=== PATIENT | female | born 1965 | race Caucasian/White ===

== ENCOUNTER → 2019-03-30 15:38 | Outpatient (BNVA) | payer MEDICAID, SELFPAY | PROVIDERS: Family Provider Nurse Practitioner; PCP Nurse Practitioner; Visit Provider Nurse Practitioner Psychiatric/Mental Health | DX: F31.64 Bipolar disorder, current episode mixed, severe, with psychotic features (principal); F12.20 Cannabis dependence, uncomplicated; F17.290 Nicotine dependence, other tobacco product, uncomplicated | CPT/HCPCS: 99213 ==

== ENCOUNTER → 2019-06-22 08:16 | Outpatient (BNVA) | payer MEDICAID, SELFPAY | PROVIDERS: Family Provider Nurse Practitioner; PCP Nurse Practitioner; Visit Provider Nurse Practitioner Psychiatric/Mental Health | DX: F31.64 Bipolar disorder, current episode mixed, severe, with psychotic features (principal); F12.20 Cannabis dependence, uncomplicated; F17.290 Nicotine dependence, other tobacco product, uncomplicated; F31.81 Bipolar II disorder | CPT/HCPCS: 99213 ==

== ENCOUNTER → 2019-09-15 07:58 | Outpatient (BNVA) | payer MEDICAID, SELFPAY | PROVIDERS: Family Provider Nurse Practitioner; PCP Nurse Practitioner; Visit Provider Nurse Practitioner Psychiatric/Mental Health | DX: F31.64 Bipolar disorder, current episode mixed, severe, with psychotic features (principal); F12.20 Cannabis dependence, uncomplicated; F17.290 Nicotine dependence, other tobacco product, uncomplicated | CPT/HCPCS: 99213 ==

== ENCOUNTER → 2019-12-02 15:10 | Outpatient (BNVA) | payer MEDICAID, SELFPAY | PROVIDERS: Family Provider Nurse Practitioner; PCP Nurse Practitioner; Visit Provider Family Medicine Adult Medicine | DX: E78.5 Hyperlipidemia, unspecified (principal); N18.30 Chronic kidney disease, stage 3 unspecified; R11.0 Nausea; K21.9 Gastro-esophageal reflux disease without esophagitis; J44.9 Chronic obstructive pulmonary disease, unspecified; F31.64 Bipolar disorder, current episode mixed, severe, with psychotic features | CPT/HCPCS: 80053; 80061; 85025 ==

== ENCOUNTER → 2019-12-13 08:10 | Outpatient (BNVA) | payer MEDICAID, SELFPAY | PROVIDERS: Family Provider Nurse Practitioner; PCP Nurse Practitioner; Visit Provider Nurse Practitioner Psychiatric/Mental Health | DX: F31.64 Bipolar disorder, current episode mixed, severe, with psychotic features (principal); F12.20 Cannabis dependence, uncomplicated; F17.290 Nicotine dependence, other tobacco product, uncomplicated | CPT/HCPCS: 99213 ==

== ENCOUNTER 2020-02-07 06:30 | Observation (INO) | payer MEDICAID, SELFPAY ==
[2020-02-07] VITALS (21 sets, daily range): BP systolic 136–174; BP diastolic 70–124; PULSE 20–118; RESP 13–108; TEMP 36.7–36.9; O2SAT 93–100; BMI 21.9
--- NOTE | 2020-02-07 06:39 | XR_ITS ---
WS: [id number] PORTABLE CHEST HISTORY: dyspnea/cough COMPARISON: 03/14/2059 Hyperexpanded lungs from emphysema. No pneumonia. Normal vasculature. No pleural effusion or pneumoth orax. Cardiac size: Normal. Mediastinum/Aorta: Normal mediastinum. No osseous abnormality seen. XR/XR chest 1V portable [id number] IMPRESSION: Chronic emphysema. No pneumonia.
--- NOTE | 2020-02-07 06:40 | CT_ITS ---
WS: [id number] CT ABDOMEN AND PELVIS WITH CONTRAST HISTORY: Abdominal pain, vomiting blood. TECHNIQUE: Imaging performed of the abdomen and pelvis with IV contrast. Single phase imaging of the abdomen. Coronal and sagittal reformats are submitted. All CT scans at [facility] use at least one of these dose optimization techniques: automated exposure control; mA and/or kV adjustment per patient size (includes targeted exams where dose is matched to clinical indication); or iterativ e reconstruction. IV CONTRAST: Visipaque 320; 95 mL IV. Oral contrast: No DLP: 176.84 mGy.cm COMPARISON: 03/01/2019 Lower thorax: Severe emphysema at the lung bases. Heart is normal size. Diffuse circumferential moder ate esophageal wall thickening and a small hiatal hernia. Esophageal wall thickening has progressed s bora the prior study. Liver/biliary system: Normal size liver with a few scattered hypodensities which are too small to naida racterize. Gallbladder: Normal. No gallstones or wall thickening. No pericholecystic fluid. Pancreas: Moderate atrophy of the pancreas with no bile duct dilatation. Spleen: Normal. Adrenal glands: Normal. Right kidney: Normal. Left kidney: Normal. Aorta: Mild atherosclerosis with no aneurysm. Lymphadenopathy: None. Free fluid: None. GI tract: Marked diffuse constipation. Inspissated material throughout the entire colon. Colon is tor tuous and overlapping but no obstruction is identified. Moderate fluid distention of the stomach. Foc al outpouching of air extending into the antral mucosa of the stomach with adjacent mucosal thickenin g and edema. Abdominal wall: Unremarkable abdominal wall. No hernia. Pelvis: Normal. Bones: Unremarkable. CT/CT abdomen pelvis w con* [id number] IMPRESSION: 1. Highly suspicious for a nonperforated gastric ulcer involving the antrum. 2. Moderate distal esophagitis. 3. Marked emphysema. 4. Mild atherosclerosis aorta. 5. Marked diffuse constipation.
[2020-02-07] MEDS: ondansetron 2 mg/ML SDV 2 mL 4 MG IVP ×2 (06:51→13:33)
[2020-02-07] MEDS: sodium chloride 0.9% 1,000 ML 999 ML IV (06:53)
[2020-02-07 06:57] LABS: Basophils % 0.2 %; Eosinophils % 0.1 %; Hematocrit 41.3 % (37.0-47.0); Hemoglobin 14.6 g/dL (11.5-15.3); Lymphocytes % 8.5 %; Mean Corpuscular HGB Conc 35.4 g/dL (30.0-36.0); Mean Corpuscular Hemoglobin 30.5 pg (28.0-34.0); Mean Corpuscular Volume 86.4 fL (81-99); Mean Platelet Volume 9.5 fL (7.4-10.4); Monocytes # 0.7 10^3/uL (0.2-0.9); Neutrophils # 10.21 10^3/uL (1.8-7.7); Nucleated Red Blood Cells % 0 %; Platelet Count 343 10^3/cmm (130-400); Red Blood Count 4.78 10^6/uL (4.1-5.3); Red Cell Distribution Width 13.4 % (12.1-15.1)
--- NOTE | 2020-02-07 07:02 | PC.NURSE ---
Report received from ALEX Chowdhury at this time. This RN resumes patients care.
[2020-02-07 07:08] LABS: INR 0.93 (0.8-1.2)
[2020-02-07 07:09] LABS: Partial Thromboplastin Time 26.4 SECONDS (23.9-36.7)
[2020-02-07 07:14] LABS: Anion Gap 18.4 (5-19); Blood Urea Nitrogen 9 mg/dL (6-20); Carbon Dioxide 27 mmol/L (22-29); Chloride 96 mmol/L (98-107); Potassium 3.4 mmol/L (3.5-5.1); Sodium 138 mmol/L (136-145)
[2020-02-07 07:15] LABS: Alanine Aminotransferase 19 U/L (0-33); Albumin Level 4.7 g/dL (3.5-5.2); Alkaline Phosphatase 94 IU/L (35-105); Aspartate Amino Transferase 20 U/L (0-32); Creatine Phosphokinase 75 U/L (26-192); Glucose 246 mg/dL (65-115); Lipase 16 U/L (13-60); Magnesium 1.7 mg/dL (1.7-2.3); Osmolality Calculated 293 mOsm/kg (285-295); Total Bilirubin 0.4 mg/dL (0.15-1.2); Total Protein 7.7 g/dL (6.6-8.7)
[2020-02-07] MEDS: LORazepam 2 mg/mL INJ 1 mL 1 MG IVP (07:17)
[2020-02-07] MEDS: morphine 4 mg/mL SDV 1 mL 2 MG IVP ×3 (07:18→20:02)
[2020-02-07] MEDS: pantoprazole 40 mg SDV 80 MG IVP (07:19)
--- NOTE | 2020-02-07 07:28 | PC.NURSE ---
At patients bedside. This RN introduced self to patient. Patient resting in bed comfortably. No distress noted at this time. This RN obtained a type and screen and sent to lab. Administered medications to the patient at that was ordered at this time as well. This RN tested patients emesis that was in the emesis basin at bedside for occult blood. The test came back positive for blood. This RN notified the physician of the findings. X-ray at bedside after this RN left the room. Will continue to monitor patient.
[2020-02-07] MEDS: iodixanol 320 mg/mL 100mL Btl IV (07:36)
--- NOTE | 2020-02-07 07:50 | PC.NURSE ---
Rounded on patient. Patient resting in bed. No distress noted. Visitor at bedside. This RN educated patient that a stool sample is needed to be able to test for blood in her stool. Patient reports that she is unable to go at this time. Will update physician. Patient has no needs at this time. Will continue to monitor patient.
[2020-02-07 08:04] LABS: Urine Appearance Cloudy (CLEAR); Urine Color Yellow (Yellow); pH Urine 6.5 (5-7)
[2020-02-07 08:05] LABS: Add Urine Microscopic? YES; Bilirubin Urine 1+ (Negative); Blood Urine 2+ (Negative); Glucose Urine UA 2+ (Normal); Ketones Urine 2+ (Negative); Leukocyte Esterase Urine Trace (Negative); Nitrate Urine Negative (Negative); Protein Urine Trace (Negative); Specific Gravity, Urine 1.015 (1.005-1.030); Urobilinogen Urine 1 mg/dL (Negative)
[2020-02-07 08:07] LABS: Add Urine Culture? Yes; Bacteria Urine 4+ /hpf; Mucus Urine TRACE /hpf; RBC Urine 0-4 /hpf (0-2); Squamous Epithelial Cell Urine 0-4 /hpf (0-5); WBC Urine 25-40 /hpf (0-5)
--- NOTE | 2020-02-07 08:17 | W.ED.NAVMDI ---
HPI - Nausea/Vomiting/Diarrhea General: Chief complaint: Nausea/Vomiting/Diarrhea Stated complaint: Throwing up Blood Time Seen by Provider: 02/07/20 06:35 History of Present Illness: HPI Narrative: 54-year-old female presents complaining of vomiting that began yesterday with [id number] emesis slight reddish appearance to the emesis in the basin when I came to the exam room. She has had a little shortness of breath. She denies any history of GI bleeds. Previously she was on Zantac but she stopped that because of a recall. She did not replace it with anything according her primary care doctor's notes it was because of her lack of symptoms. She does chronically use marijuana and still is using it daily she states for pretty much all of her life. Additionally she has stage III chronic kidney disease. MD elicited complaint: nausea and vomiting Pertinent past history: other (Chronic cannabinoid syndrome) Onset (ago): day(s) Description of vomiting: bloody and coffee grounds Associated nausea: Yes Associated abdominal pain: Yes Location of pain: Epigastric Pain consistency: constant Severity: severe Quality: cramping Exacerbating factors: vomiting and movement Relieving factors: rest Associated symtoms: Reports anxiety, bloating, cough, fatigue, anorexia, malaise, myalgias, nausea and weakness; Denies altered mental status, change in vision, chest pain, diaphoresis, decreased urine output, dizziness, dysuria, epistaxis, fecal incontinence, fevers/chills, headache(s), numbness, palpitations, rash, short of breath, syncope, tenesmus or tinnitus Review of Systems Const: Reports: fatigue and malaise; Denies: diaphoresis Eyes: Denies: change in vision ENMT: Denies: tinnitus or epistaxis Card: Denies: chest pain, palpitations or syncope Resp: Denies: dyspnea, productive cough or non-productive cough GI: Reports: nausea and bloating; Denies: fecal incontinence : Denies: dysuria Skin/Breast: Denies: rash or pruritus Neuro: Denies: headache(s) or dizziness Psych: Reports: anxiety [facility] PFSH: Medical History (Updated 02/07/20 @ 08:26 by Brett Membreno DO) Bipolar affective disorder, mixed, severe, with psychotic behavior Cannabis dependence with current use Chronic nausea CKD (chronic kidney disease) stage 3, GFR 30-59 ml/min COPD (chronic obstructive pulmonary disease) Dyslipidemia GERD (gastroesophageal reflux disease) Nicotine dependence, other tobacco product, uncomplicated Social History Smoking and tobacco status: current every day smoker cigarettes Packs smoked per day: 0.5 Second hand smoke exposure: Yes Alcohol intake: never Physical Exam Const: COMMON NORMALS: no acute distress EXAM LIMITATIONS: no altered mental status GENERAL APPEARANCE: cooperative and comfortable ORIENTATION/CONSCIOUSNESS: Yes awake, Yes oriented to person, Yes oriented to place and Yes oriented to time HENMT: COMMON NORMALS: normocephalic, atraumatic, hearing grossly normal bilaterally, external ears normal, EAC's normal, TM's normal bilaterally, Normal nasal mucous membranes and turbinates present, moist oral mucous membranes and oropharynx normal HEAD & SCALP: normocephalic and atraumatic NOSE: Normal nasal mucous membranes and turbinates present EXTERNAL EAR: Yes external ears normal EXTERNAL AUDITORY CANAL: EAC's normal TYMPANIC MEMBRANE: TM's normal bilaterally Eye: COMMON NORMALS: Equal, round and reactive pupils present, EOMs intact bilaterally, conjunctivae normal and no scleral icterus CONJUNCTIVA: Yes conjunctivae normal PUPIL: Yes Equal, round and reactive pupils present Neck/C-Spine: COMMON NORMALS: full ROM, no lymphadenopathy, supple and no JVD Lymph: LYMPHATIC: no lymphadenopathy noted and no lymphedema noted Resp: COMMON NORMALS: normal respiratory effort, No retractions, No use of accessory muscles and clear to auscultation bilaterally AUSCULTATION: clear to auscultation bilaterally Cardio: COMMON NORMALS: no JVD, regular rate, regular rhythm and No murmurs present (Cardio) RATE: regular rate RHYTHM: regular rhythm GI: COMMON NORMALS: No hepatosplenomegaly present PALPATION: Yes Tenderness to palpation present (GI) (epigstrium), No Guarding due to palpation present (GI) and Yes No hepatosplenomegaly present Extremity: COMMON NORMALS: normal to inspection, capillary refill normal, no clubbing, cyanosis or edema, no calf tenderness and no pedal edema Neuro: SENSORIUM/ORIENTATION: Yes oriented to person, Yes oriented to place and Yes oriented to time Skin: COMMON NORMALS: no rashes or lesions noted GENERAL SKIN EXAM: no rashes or lesions noted Course Vital Signs: Vital signs: Vital Signs Temperature 98.1 F 02/07/20 06:40 Pulse Rate 106 H 02/07/20 09:24 Respiratory Rate 19 H 02/07/20 09:24 Blood Pressure 174/106 02/07/20 09:24 Pulse Oximetry 96 02/07/20 09:24 MDM - Nausea/Vomiting/Diarrhea MDM Narrative: Medical decision making narrative: CT shows nonperforated gastric ulcer consistent with her findings. Additionally she has a cystitis without started on Rocephin keep her n.p.o. referred to surgery discussed admission with hospitalist as well. Lab Data: Labs: Lab Results 02/07/20 02/07/20 02/07/20 Range/Units 06:47 06:47 06:47 WBC 12.0 H (4.0-10.0) 10^3/ uL RBC 4.78 (4.1-5.3) 10^6/u L Hgb 14.6 (11.5-15.3) g/dL Hct 41.3 (37.0-47.0) % MCV 86.4 (81-99) fL MCH 30.5 (28.0-34.0) pg MCHC 35.4 (30.0-36.0) g/dL RDW 13.4 (12.1-15.1) % Plt Count 343 (130-400) 10^3/c mm MPV 9.5 (7.4-10.4) fL Neut % (Auto) 85.0 % Lymph % (Auto) 8.5 % Flagler % (Auto) 6.0 % Eos % (Auto) 0.1 % Baso % (Auto) 0.2 % Neut # (Auto) 10.21 H (1.8-7.7) 10^3/u L Lymph # (Auto) 1.0 (0.8-4.8) 10^3/u L Flagler # (Auto) 0.7 (0.2-0.9) 10^3/u L Eos # (Auto) 0.0 (0.0-0.8) 10^3/u L Baso # (Auto) 0.0 (0.0-0.1) 10^3/u L Nucleated RBC % (a uto) 0 % Nucleated RBCs # 0.0 /100WBC PT 12.80 (12.1-14.9) SECO NDS INR 0.93 (0.8-1.2) APTT 26.4 (23.9-36.7) SECO NDS Sodium 138 (136-145) mmol/L Potassium 3.4 L (3.5-5.1) mmol/L Chloride 96 L (98-107) mmol/L Carbon Dioxide 27 (22-29) mmol/L Anion Gap 18.4 (5-19) BUN 9 (6-20) mg/dL Creatinine 0.9 (0.5-0.9) mg/dL GFR Calculation 65.0 L (90-130) mL/min Glucose 246 H (65-115) mg/dL Calculated Osmolal ity 293 (285-295) mOsm/k g Calcium 10.0 (8.5-10.5) mg/dL Magnesium 1.7 (1.7-2.3) mg/dL Total Bilirubin 0.4 (0.15-1.2) mg/dL AST 20 (0-32) U/L ALT 19 (0-33) U/L Alkaline Phosphata se 94 (35-105) IU/L Creatine Kinase 75 (26-192) U/L Total Protein 7.7 (6.6-8.7) g/dL Albumin 4.7 (3.5-5.2) g/dL Globulin 3.0 (1.3-4.6) g/dL Lipase 16 (13-60) U/L Urine Color (Yellow) Urine Appearance (CLEAR) Urine pH (5-7) Ur Specific Gravit y (1.005-1.030) Urine Protein (Negative) Urine Glucose (UA) (Normal) Urine Ketones (Negative) Urine Blood (Negative) Urine Nitrate (Negative) Urine Bilirubin (Negative) Urine Urobilinogen (Negative) mg/dL Ur Leukocyte Audelia ase (Negative) Urine RBC (0-2) /hpf Urine WBC (0-5) /hpf Ur Squamous Epith Cells (0-5) /hpf Amorphous Sediment Urine Bacteria (NONE) /hpf Urine Mucus /hpf Blood Type Rho(D) Type Antibody Screen 02/07/20 02/07/20 Range/Units 07:09 07:15 WBC (4.0-10.0) 10^3/ uL RBC (4.1-5.3) 10^6/u L Hgb (11.5-15.3) g/dL Hct (37.0-47.0) % MCV (81-99) fL MCH (28.0-34.0) pg MCHC (30.0-36.0) g/dL RDW (12.1-15.1) % Plt Count (130-400) 10^3/c mm MPV (7.4-10.4) fL Neut % (Auto) % Lymph % (Auto) % Flagler % (Auto) % Eos % (Auto) % Baso % (Auto) % Neut # (Auto) (1.8-7.7) 10^3/u L Lymph # (Auto) (0.8-4.8) 10^3/u L Flagler # (Auto) (0.2-0.9) 10^3/u L Eos # (Auto) (0.0-0.8) 10^3/u L Baso # (Auto) (0.0-0.1) 10^3/u L Nucleated RBC % (a uto) % Nucleated RBCs # /100WBC PT (12.1-14.9) SECO NDS INR (0.8-1.2) APTT (23.9-36.7) SECO NDS Sodium (136-145) mmol/L Potassium (3.5-5.1) mmol/L Chloride (98-107) mmol/L Carbon Dioxide (22-29) mmol/L Anion Gap (5-19) BUN (6-20) mg/dL Creatinine (0.5-0.9) mg/dL GFR Calculation (90-130) mL/min Glucose (65-115) mg/dL Calculated Osmolal ity (285-295) mOsm/k g Calcium (8.5-10.5) mg/dL Magnesium (1.7-2.3) mg/dL Total Bilirubin (0.15-1.2) mg/dL AST (0-32) U/L ALT (0-33) U/L Alkaline Phosphata se (35-105) IU/L Creatine Kinase (26-192) U/L Total Protein (6.6-8.7) g/dL Albumin (3.5-5.2) g/dL Globulin (1.3-4.6) g/dL Lipase (13-60) U/L Urine Color Yellow (Yellow) Urine Appearance Cloudy (CLEAR) Urine pH 6.5 (5-7) Ur Specific Gravit y 1.015 (1.005-1.030) Urine Protein Trace (Negative) Urine Glucose (UA) 2+ (Normal) Urine Ketones 2+ H (Negative) Urine Blood 2+ H (Negative) Urine Nitrate Negative (Negative) Urine Bilirubin 1+ H (Negative) Urine Urobilinogen 1 H (Negative) mg/dL Ur Leukocyte Audelia ase Trace H (Negative) Urine RBC 0-4 H (0-2) /hpf Urine WBC 25-40 H (0-5) /hpf Ur Squamous Epith Cells 0-4 H (0-5) /hpf Amorphous Sediment Not Reportable Urine Bacteria 4+ H (NONE) /hpf Urine Mucus Trace /hpf Blood Type O Negative Rho(D) Type Negative Antibody Screen Negative Discharge Plan Discharge Patient Disposition: Admitted As Inpatient Clinical Impression: Ulcer of antrum of stomach, COPD (chronic obstructive pulmonary disease), GERD (gastroesophageal reflux disease), CKD (chronic kidney disease) stage 3, GFR 30-59 ml/min, Acute upper gastrointestinal bleeding, Cannabinoid hyperemesis syndrome, Cystitis Condition: Stable Coding Level of Care Code ED Senior Licensing Manager for Chg Fwd Exam Comprehensive
[2020-02-07] MEDS: cefTRIAXone 1,000 MG in sodium chloride 0.9% (plus) 50 ML 100 MG IV (08:31)
--- NOTE | 2020-02-07 09:24 | PC.NURSE ---
Rounded on patient. Patient resting in bed. No distress noted. Patient has no needs at this time. Educated patient to use call light if she has any needs. Will continue to monitor patient.
[2020-02-07] MEDS: dextrose 5%-sod chloride 0.45% 1,000 ML 100 ML IV (10:13)
--- NOTE | 2020-02-07 13:45 | ECG_ITS ---
[facility] Test Date: 2020-02-07 Pat Name: Michelle Leone Department: Room: 275 Gender: Female Budget Technician: : 1965 Requested By: Kassidy Yuan Order Number: [id number] Carla MD: Erika Martínez M.D. Measurements Intervals [place] Rate: 105 P: 81 IL: 116 QRS: 81 QRSD: 94 T: 75 QT: 393 QTc: 520 Interpretive Statements SINUS TACHYCARDIA WITH SHORT IL INTERVAL POSSIBLE LEFT ATRIAL ENLARGEMENT [-0.1mV P WAVE IN V1/V2] Compared to ECG 03/14/2015 12:37:08 Short IL interval now present Electronically Signed On 02-08-2020 17:15:55 PRODUCTION CONTROL SCHEDULER by Erika Martínez M.D. [id number]
--- NOTE | 2020-02-07 13:45 | PM.HP ---
Providers/Chief Complaint Admitting Physician: Kassidy Yuan MD Primary Care Provider: ROMELIA Cha Chief Complaint: Throwing up Blood History of Present Illness Michelle Leone is a 54 year old female with PMH CKD stage 3a, DM, HTN, chronic pain , GERD presented to ER today with c/o hemetmesis, multiple episodes that started last night. She reports multiple episodes of vomting followed therefater by bright red blood without any other contents. She used to be on ranitidine chronically until it was discontinued 2 months ago. Also reports abdominal pain. 09/09 non radiating. Hb stable at 14. Hemodynamically stable. no further episodes since oresentation to ER. No korin, FOB+. CT abdomen with sugegstion of gastric ulcer. Review of Systems General: Reports: 10 or more systems reviewed and unremarkable except in HPI and below Const: Denies: fever(s), chills or body aches Eyes: Denies: change in vision, blurry vision or photophobia ENMT: Reports: hoarseness; Denies: throat pain, enlarged tonsils, odynophagia or nasal congestion Card: Denies: chest pain, palpitations, irregular heart rhythm, edema, swelling of feet/ankles, lightheadedness, pre-syncope, dyspnea on exertion or orthopnea Resp: Denies: dyspnea, productive cough, non-productive cough, wheezing, stridor, pain on inspiration, change in phlegm color, hemoptysis or chest congestion GI: Denies: abdominal pain, nausea, vomiting, hematemesis, coffee ground emesis, dysphagia, heartburn, diarrhea, constipation, GI cramping, change in stool character, hematochezia or melena : Denies: flank pain, difficulty voiding, dysuria, urinary frequency, urinary urgency, urinary hesitancy or hematuria Musc: Denies: neck pain, back pain, extremity pain, joint swelling, joint warmth or deformity Neuro: Denies: headache(s), numbness in extremities, weakness in extremities, sensory changes, difficulty walking, frequent falls, dizziness, vertigo, behavioral changes, Slurred speech present or seizure-like activity Psych: Denies: anxiety, depression, suicidal ideation or homicidal ideation Endo: Denies: polyuria, polydipsia, tired all the time, cold intolerance or hot flashes Toñito/Lymph: Denies: easy bruising or easy bleeding Medications/Allergies Home Medications Medication Instructions Recorded Confirmed Last Taken Type albuterol sulfate 90 mcg/actuation 2 puff INHALATION Q6H PRN #18 gm 12/02/19 02/07/20 Unknown Rx aerosol inhaler atorvastatin 40 mg tablet 40 mg PO DAILY 30 Days #30 tab 12/02/19 02/07/20 Unknown Rx budesonide-formoterol HFA 160 2 puff INHALATION BID 30 Days 12/02/19 02/07/20 Unknown Rx mcg-4.5 mcg/actuation aerosol #10.2 gm inhaler citalopram 20 mg tablet 20 mg PO QAM #30 tab 12/02/19 02/07/20 Unknown Rx montelukast 10 mg tablet 10 mg PO DAILY 30 Days #30 tab 01/31/20 02/07/20 Unknown Rx Seroquel 600 mg PO BEDTIME 02/07/20 02/07/20 Unknown History cranberry extract-vitamin C 1 cap PO PRN 02/07/20 02/07/20 Unknown History hydroxyzine HCl 50 mg PO BID PRN 02/07/20 02/07/20 Unknown History ondansetron HCl 4 mg PO Q8H PRN 02/07/20 02/07/20 Unknown History vitamin B complex 1 tab PO DAILY 02/07/20 02/07/20 Unknown History Allergies Allergy/AdvReac Type Severity Reaction Status Date / Time codeine Allergy Unknown Unknown Verified 02/07/20 09:45 PFSH Acute PFSH: Medical History Bipolar affective disorder, mixed, severe, with psychotic behavior Cannabis dependence with current use Chronic nausea CKD (chronic kidney disease) stage 3, GFR 30-59 ml/min COPD (chronic obstructive pulmonary disease) Dyslipidemia GERD (gastroesophageal reflux disease) Nicotine dependence, other tobacco product, uncomplicated Social History Smoking and tobacco status: current every day smoker cigarettes Packs smoked per day: 0.5 Second hand smoke exposure: Yes Alcohol intake: never Vitals/I&O/Wt Last Vital Signs Temp 98.3 F 02/07/20 12:00 Pulse 112 H 02/07/20 12:00 Resp 18 02/07/20 12:00 BP 154/89 02/07/20 12:00 Pulse Ox 95 02/07/20 12:00 02/06/20 02/07/20 02/07/20 22:59 06:59 14:59 Intake Total 1050 / 1050 Balance 1050 / 1050 Weight last 48 hrs Weight 52.617 kg Physical Exam Const: COMMON NORMALS: no acute distress, average body habitus, patient oriented x3, no limitations, healthy appearing, alert and well nourished HENMT: COMMON NORMALS: normocephalic and atraumatic HEAD & SCALP: normocephalic and atraumatic Eye: COMMON NORMALS: Equal, round and reactive pupils present, EOMs intact bilaterally, conjunctivae normal and no scleral icterus CONJUNCTIVA: Yes conjunctivae normal PUPIL: Yes Equal, round and reactive pupils present Neck/C-Spine: COMMON NORMALS: no JVD Resp: COMMON NORMALS: normal respiratory effort, No retractions, No use of accessory muscles, clear to auscultation bilaterally and percussion normal AUSCULTATION: clear to auscultation bilaterally PERCUSSION: percussion normal Cardio: COMMON NORMALS: no JVD, regular rate, regular rhythm, S1 normal heart sound present, S2 normal heart sound present, No gallops present (Cardio), No clicks present (Cardio), No murmurs present (Cardio), No rub (Cardio) and Peripheral pulses 2+ throughout RATE: regular rate RHYTHM: regular rhythm HEART SOUNDS: S1 normal heart sound present and S2 normal heart sound present PERIPHERAL PULSES: Peripheral pulses 2+ throughout GI: COMMON NORMALS: Normal to inspection, nondistended, normoactive bowel sounds present, Soft to palpation, non-tender, No hepatosplenomegaly present, no masses and no bruits PALPATION: Yes Soft to palpation and Yes No hepatosplenomegaly present Extremity: COMMON NORMALS: normal to inspection, full ROM, capillary refill normal, no joint enlargement, no clubbing, cyanosis or edema, no calf tenderness and no pedal edema Neuro: COMMON NORMALS: patient oriented x3, CN's II-XII intact bilaterally, moves all extremities, no focal motor deficits, no sensory deficits noted, deep tendon reflexes 2+ bilaterally and gait normal SENSORIUM/ORIENTATION: Yes alert Psych: COMMON NORMALS: mental status grossly normal, Normal thought process present, cooperative, normal affect, speech normal, activity/motor behavior normal, denies hallucinations, denies homicidal ideation and denies suicidal ideation SPEECH: Yes normal speech THOUGHT PROCESS: Normal thought process present Skin: COMMON NORMALS: no rashes or lesions noted, no wounds, turgor normal, no jaundice, no petechiae and no mottling GENERAL SKIN EXAM: no rashes or lesions noted and turgor normal Data : 02/07/20 17:25 02/07/20 06:47 A&P Assessment and plan (1) Ulcer of antrum of stomach: Status: Acute (2) Acute upper gastrointestinal bleeding: likely 2/2 antral ulcer as identified on CT no signs of perforation Protonix 80 mg iv given in ER, continue 40mg iv q12h no further episodes of hematemesis since ER presentation prn zofran/reglan Hb stable at 14, recheck this evening at 5 and then leobardo hemodynamicaly stable surgery consult with Dr. Pastrana- EGD likely as outptient if otherwise remains stable Status: Acute (3) COPD (chronic obstructive pulmonary disease): no acute exacerbation continue duonebs and pulmicort inhalation Status: Acute (4) CKD (chronic kidney disease) stage 3, GFR 30-59 ml/min: Status: Acute Attestations Medical Necessity Statement*: anticipate <2midnight for monitoring UGI bleeding, HB, hemodynamics Coding Level of Care Code Acute Purification Director for Chg Fwd Diagnoses Ulcer of antrum of stomach K25.9 Acute upper gastrointestinal bleeding K92.2 COPD (chronic obstructive pulmonary disease) J44.9 CKD (chronic kidney disease) stage 3, GFR 30-59 ml/min N18.3
--- NOTE | 2020-02-07 15:18 | PC.NURSE ---
patient complaining of nausea, zofran given at [address]. [address] Dr Yuan and requested something else for nausea per patient's request.
[2020-02-07] MEDS: dextrose 5%-ns + KCl 20 20 MEQ/1,000 ML BAG 75 MEQ IV (15:50)
--- NOTE | 2020-02-07 16:14 | PM.CONSULT ---
Providers/Reason For Consult Consulting Physican/Specialty*: Dr. Yuan Reason for Consult*: GI bleed Attending Physician: Kassidy Yuan MD Primary Care Provider: ROMELIA Cha History of Present Illness History of Present Illness Michelle Leone is a 54 year old female who presented to the ER last night with complaints of sudden onset of abdominal pain, nausea, vomiting and coffee-ground emesis. Patient denies any similar episodes in the past. Since her admission she is not had any further upper GI bleed. Patient denies any melena. She is never been diagnosed with peptic ulcer disease in the past and thinks she might have a had a EGD but she is not sure. Patient denies having a colonoscopy. She denies any history of NSAID abuse due to her known CKD Review of Systems General: Reports: 10 or more systems reviewed and unremarkable except in HPI and below Meds/Allergies Home Medications and Allergies Home Medications Medication Instructions Recorded Confirmed Last Taken Type albuterol sulfate 90 mcg/actuation 2 puff INHALATION Q6H PRN #18 gm 12/02/19 02/07/20 Unknown Rx aerosol inhaler atorvastatin 40 mg tablet 40 mg PO DAILY 30 Days #30 tab 12/02/19 02/07/20 Unknown Rx budesonide-formoterol HFA 160 2 puff INHALATION BID 30 Days 12/02/19 02/07/20 Unknown Rx mcg-4.5 mcg/actuation aerosol #10.2 gm inhaler citalopram 20 mg tablet 20 mg PO QAM #30 tab 12/02/19 02/07/20 Unknown Rx montelukast 10 mg tablet 10 mg PO DAILY 30 Days #30 tab 01/31/20 02/07/20 Unknown Rx Seroquel 600 mg PO BEDTIME 02/07/20 02/07/20 Unknown History cranberry extract-vitamin C 1 cap PO PRN 02/07/20 02/07/20 Unknown History hydroxyzine HCl 50 mg PO BID PRN 02/07/20 02/07/20 Unknown History ondansetron HCl 4 mg PO Q8H PRN 02/07/20 02/07/20 Unknown History vitamin B complex 1 tab PO DAILY 02/07/20 02/07/20 Unknown History Allergies Allergy/AdvReac Type Severity Reaction Status Date / Time codeine Allergy Unknown Unknown Verified 02/07/20 09:45 Current Medications Current Medications Generic Name Dose Route Start Last Admin Trade Name Freq PRN Reason Stop Dose Admin Potassium Chloride/Dextrose/Sod Cl 20 meq in 1,000 mls @ 75 mls/hr 02/07/20 14:00 02/07/20 15:50 Dextrose 5%-Ns + Kcl 20 IV 75 mls/hr .[id number] QUYEN Administration Morphine Sulfate 2 mg 02/07/20 09:48 02/07/20 13:45 Morphine 4 Mg/Ml Sdv 1 Ml IVP 2 mg Q4H PRN Administration SEVERE PAIN Ondansetron HCl 4 mg 02/07/20 09:48 02/07/20 13:33 Ondansetron 2 Mg/Ml Sdv 2 Ml IVP 4 mg Q6H PRN Administration NAUSEA AND VOMITING PFSH Acute PFSH: Medical History (Updated 02/07/20 @ 08:26 by Brett Membreno DO) Bipolar affective disorder, mixed, severe, with psychotic behavior Cannabis dependence with current use Chronic nausea CKD (chronic kidney disease) stage 3, GFR 30-59 ml/min COPD (chronic obstructive pulmonary disease) Dyslipidemia GERD (gastroesophageal reflux disease) Nicotine dependence, other tobacco product, uncomplicated Social History Smoking and tobacco status: current every day smoker cigarettes Packs smoked per day: 0.5 Second hand smoke exposure: Yes Alcohol intake: never Vitals/I&O/Wt Last Vital Signs Temp 98.4 F 02/07/20 15:33 Pulse 103 H 02/07/20 15:33 Resp 18 02/07/20 15:33 BP 146/84 02/07/20 15:33 Pulse Ox 94 02/07/20 15:33 02/07/20 02/07/20 02/07/20 06:59 14:59 22:59 Intake Total 1050 / 1050 Balance 1050 / 1050 Weight last 48 hrs Weight 116 lb Physical Exam Narrative: EXAM NARRATIVE: HEENT: Normocephalic Eye: Sclera /conjunctiva normal Respiratory and chest: Bilateral clear breath sounds on auscultation Cardiovascular: Normal S1 and S2 heart sounds Abdomen: Soft to palpation, mildly tender, no guarding or rigidity Neurological: Oriented to place person and time Skin: Intact, no lesions appreciated on gross exam Data Imaging^: CT Abd/Pel: I personally reviewed and interpreted this imaging study as follows: Radiologist's impression: 1. Highly suspicious for a nonperforated gastric ulcer involving the antrum. 2. Moderate distal esophagitis. 3. Marked emphysema. 4. Mild atherosclerosis aorta. 5. Marked diffuse constipation. A&P Assessment and plan (1) Ulcer of antrum of stomach: 53-year-old female who presents with upper GI bleed is currently hemodynamically stable. Her hemoglobin is 14.6. CT scan shows findings concerning for esophagitis and nonperforated antral ulcer. 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
[2020-02-07 17:39] LABS: Basophils % 0.2 %; Eosinophils % 0.1 %; Hematocrit 40.1 % (37.0-47.0); Hemoglobin 13.3 g/dL (11.5-15.3); Lymphocytes # 1.4 10^3/uL (0.8-4.8); Mean Corpuscular HGB Conc 33.2 g/dL (30.0-36.0); Mean Corpuscular Hemoglobin 30.1 pg (28.0-34.0); Mean Corpuscular Volume 90.7 fL (81-99); Mean Platelet Volume 9.4 fL (7.4-10.4); Monocytes # 1.3 10^3/uL (0.2-0.9); Monocytes % 11.6 %; Neutrophils # 8.06 10^3/uL (1.8-7.7); Neutrophils % 74.8 %; Nucleated Red Blood Cells % 0 %; Platelet Count 275 10^3/cmm (130-400); Red Blood Count 4.42 10^6/uL (4.1-5.3); Red Cell Distribution Width 13.7 % (12.1-15.1); White Blood Count 10.8 10^3/uL (4.0-10.0)
[2020-02-07] MEDS: pantoprazole 40 mg SDV IVP (18:16)
[2020-02-07] MEDS: ondansetron 4 MG Tablet PO (19:53)
[2020-02-07] MEDS: budesonide 0.5 mg/2 mL Neb INHALATION (20:28)
[2020-02-07] MEDS: quetiapine 300 mg Tablet 600 MG PO (20:31)
[2020-02-08] VITALS (14 sets, daily range): BP systolic 99–170; BP diastolic 63–96; PULSE 64–124; RESP 16–20; TEMP 36.5–36.9; O2SAT 92–99
[2020-02-08] MEDS: citalopram 20 mg Tablet PO (05:22)
[2020-02-08] MEDS: dextrose 5%-ns + KCl 20 20 MEQ/1,000 ML BAG 75 MEQ IV ×2 (05:23→18:21)
[2020-02-08 05:24] LABS: Basophils % 0.1 %; Eosinophils % 0.3 %; Hematocrit 37.9 % (37.0-47.0); Hemoglobin 13.1 g/dL (11.5-15.3); Lymphocytes # 1.6 10^3/uL (0.8-4.8); Lymphocytes % 21.6 %; Mean Corpuscular HGB Conc 34.6 g/dL (30.0-36.0); Mean Corpuscular Hemoglobin 30.3 pg (28.0-34.0); Mean Corpuscular Volume 87.7 fL (81-99); Mean Platelet Volume 9.7 fL (7.4-10.4); Monocytes # 0.7 10^3/uL (0.2-0.9); Monocytes % 9.9 %; Neutrophils # 4.93 10^3/uL (1.8-7.7); Neutrophils % 67.8 %; Nucleated Red Blood Cells % 0 %; Platelet Count 273 10^3/cmm (130-400); Red Blood Count 4.32 10^6/uL (4.1-5.3); Red Cell Distribution Width 13.7 % (12.1-15.1); White Blood Count 7.3 10^3/uL (4.0-10.0)
[2020-02-08 05:54] LABS: Alanine Aminotransferase 15 U/L (0-33); Albumin Level 3.9 g/dL (3.5-5.2); Alkaline Phosphatase 77 IU/L (35-105); Anion Gap 13.4 (5-19); Aspartate Amino Transferase 15 U/L (0-32); Blood Urea Nitrogen 5 mg/dL (6-20); Calcium 8.4 mg/dL (8.5-10.5); Carbon Dioxide 25 mmol/L (22-29); Chloride 104 mmol/L (98-107); Globulin 2.2 g/dL (1.3-4.6); Glomerular Filtration Rate 86.9 mL/min (90-130); Glucose 168 mg/dL (65-115); Osmolality Calculated 289 mOsm/kg (285-295); Potassium 3.4 mmol/L (3.5-5.1); Sodium 139 mmol/L (136-145); Total Bilirubin 0.3 mg/dL (0.15-1.2); Total Protein 6.1 g/dL (6.6-8.7)
[2020-02-08] MEDS: pantoprazole 40 mg SDV IVP ×2 (06:03→18:38)
[2020-02-08] MEDS: morphine 4 mg/mL SDV 1 mL 2 MG IVP (08:32)
[2020-02-08] MEDS: atorvastatin 40 mg Tablet PO (08:35)
[2020-02-08] MEDS: montelukast sodium 10 mg Tablet PO (08:35)
--- NOTE | 2020-02-08 08:59 | PC.CHAP ---
Pastoral Care Encounter/Spiritual Assessment Type of Contact [] Declined press reader visit [] Patient/Family/Request visit [] Outpatient visit [] Follow-up visit [] Physician referral [] Code/Alert [] Routine visit [] Staff referral [] Actively dying [] Patient sleeping [] Family support [] [x] Out of room [] Palliative care [] [] Receiving care in room [] Pre-surgical visit [] Trauma [] Long length of stay [] ICU visit [] Other: Relational/Emotional Strength [] Patient feels connected with others/family/visitors/staff [] Distress [] Loneliness/isolation [] Abandonment Spirituality of Patient [] Person of Lauren [] Attends Sikh of their Lauren [] Believes in Prayer [] Reads Bible or Mu-Ism materials [] There are Spiritual issues to be addressed Generating Station Mechanic Interventions [] Prayer [] Active listening [] Non-anxious presence [] Spiritual/emotional support [] Crisis/trauma care [] Spiritual counseling [] Bereavement support [] Provided bereavement packet [] Provided Bible/devotional materials [] Provided toy/stuffed animal, coloring book to patient or family member [] Provided Communion [] Anointing/[place] [] Salvation [] Completed spiritual assessment [] Other: Impact on Illness or Injury [] Angry [] Fearful [] Anxious [] Often cries [] Exhaustion [] Unable to work [] Unable to attend scientology [] Unable to walk/stand [] Unable to read [] Unable to drive [] Unable to eat/drink [] Unable to sleep [] Unable to be with family [] Patient intubated [] Other: Summary Time spent with patient
[2020-02-08] MEDS: budesonide 0.5 mg/2 mL Neb INHALATION ×2 (09:08→20:18)
[2020-02-08] MEDS: ipratropium-albuterol 3 mL Neb INHALATION (09:18)
--- NOTE | 2020-02-08 09:55 | PC.RESP ---
SMOKING CESSATION AND PULMONARY REHAB INFORMATION SENT TO PATIENT.
[2020-02-08 16:10] LABS: Hematocrit 38.7 % (37.0-47.0)
--- NOTE | 2020-02-08 16:38 | PM.PN ---
Subjective Subjective: Interval history: few episodes of hemetemsis continued overnight, still with abdominal pain and discomfort, Hb stable Medications: Reviewed: Yes Vitals/I&O/Wt Last Vital Signs Temp 98.4 F 02/08/20 15:33 Pulse 86 02/08/20 15:33 Resp 18 02/08/20 15:33 BP 124/78 02/08/20 15:33 Pulse Ox 96 02/08/20 15:33 02/08/20 02/08/20 02/08/20 06:59 14:59 22:59 Intake Total 1000 / 3050 Output Total 400 / 400 Balance 600 / 2650 Weight last 48 hrs Weight 52.617 kg Physical Exam Narrative: EXAM NARRATIVE: GEN: Awake, alert and oriented, no acute distress CVS: S1S2 N RS: CTA B/L Abd: Soft, nt/nd , TTP epigastrium PROPERTY SPECIALIST: no focal neuro deficits Data : 02/08/20 15:48 02/08/20 03:50 Micro: Microbiology 02/07/20 07:09 Urine Culture - Preliminary Urine,Clean Catch Gram Negative Rods A&P Assessment and plan (1) Ulcer of antrum of stomach: Status: Acute (2) Acute upper gastrointestinal bleeding: likely 2/2 antral ulcer as identified on CT no signs of perforation Protonix 80 mg iv given in ER, continue 40mg iv q12h Continued 2-3 episodes of hematemesis overnight, blood streaking with mucoid contents mostly, no further episodes this am prn zofran/reglan to continue, add sucralfate 1gm po BID Hb stable at 13 hemodynamicaly stable Apperciate surgical recomemndations- may need inpatient UGIE if with continued hematemesis Status: Acute (3) COPD (chronic obstructive pulmonary disease): no acute exacerbation continue duonebs and pulmicort inhalation Status: Acute (4) CKD (chronic kidney disease) stage 3, GFR 30-59 ml/min: Status: Acute (5) Cystitis: urine cx with GNR awaiting identification start ceftriaxone 1g iv q24h empirically no systemic signs of sepsis Status: Acute Attestations Medical Necessity Statement*: continued monitoring for hematemesis overnight, Hb check, UGIE assessment based on Hb, clinical progression Coding Level of Care Code Acute Administrative Associate for Chg Fwd Diagnoses Ulcer of antrum of stomach K25.9 Acute upper gastrointestinal bleeding K92.2 COPD (chronic obstructive pulmonary disease) J44.9 CKD (chronic kidney disease) stage 3, GFR 30-59 ml/min N18.3 Cystitis N30.90
--- NOTE | 2020-02-08 18:00 | P.PN_ITS ---
Subjective Subjective: Interval history: Patient has been stable overnight, had 2 episodes of emesis with small amount of fresh blood in the second episode. Continues to have nausea and epigastric pain Vitals/I&O/Wt Last Vital Signs Temp 98.4 F 02/08/20 15:33 Pulse 86 02/08/20 15:33 Resp 18 02/08/20 15:33 BP 124/78 02/08/20 15:33 Pulse Ox 96 02/08/20 15:33 02/08/20 02/08/20 02/08/20 06:59 14:59 22:59 Intake Total 1000 / 3050 Output Total 400 / 400 Balance 600 / 2650 Weight last 48 hrs Weight 116 lb Physical Exam Narrative: EXAM NARRATIVE: Abdomen: Soft, tender, voluntary guarding, no rigidity Data : 02/08/20 15:48 02/08/20 03:50 Micro: Microbiology 02/07/20 07:09 Urine Culture - Preliminary Urine,Clean Catch Gram Negative Rods A&P Assessment and plan (1) Ulcer of antrum of stomach: 53-year-old female with upper GI bleed noted on CT scan to have esophagitis and antral ulcer. Patient is currently hemodynamically stable and her hemoglobin is down to 13 today from 14.6 yesterday. She has had 1 small episode of hematemesis. 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
[2020-02-08] MEDS: sucralfate 1 gm/10 mL Oral Liq UDC PO ×2 (18:22→20:42)
[2020-02-08] MEDS: ondansetron 4 MG Tablet PO (19:02)
[2020-02-08] MEDS: metoclopramide 5 mg/mL SDV 2 mL IVP (19:47)
[2020-02-08] MEDS: quetiapine 300 mg Tablet 600 MG PO (20:41)
[2020-02-08 20:49] LABS: Gastricult Occult Blood Negative (Negative)
--- NOTE | 2020-02-08 20:52 | PC.NURSE ---
patient states no other needs at this time. patient resting in bed watching TV
[2020-02-09] VITALS (7 sets, daily range): BP systolic 129–144; BP diastolic 76–87; PULSE 84–116; RESP 17–18; TEMP 36.6–37.1; O2SAT 90–97
--- NOTE | 2020-02-09 00:03 | PC.NURSE ---
This nurse rounded on patient, patient sleeping with TV on. Patient pneumatic compression still running on patient. patient lights off for comfort.
--- NOTE | 2020-02-09 02:42 | PC.NURSE ---
Patient sleeping in bed with TV on, patient IV checked by this nurse and it patent.
[2020-02-09] MEDS: citalopram 20 mg Tablet PO (05:57)
[2020-02-09] MEDS: cefTRIAXone 1,000 MG in sodium chloride 0.9% (plus) 50 ML 100 MG IV (06:02)
[2020-02-09 06:55] LABS: Basophils % 0.6 %; Eosinophils # 0.1 10^3/uL (0.0-0.8); Eosinophils % 1.6 %; Hematocrit 37.7 % (37.0-47.0); Hemoglobin 12.9 g/dL (11.5-15.3); Lymphocytes # 2.2 10^3/uL (0.8-4.8); Lymphocytes % 34.9 %; Mean Corpuscular HGB Conc 34.2 g/dL (30.0-36.0); Mean Corpuscular Volume 87.7 fL (81-99); Mean Platelet Volume 9.3 fL (7.4-10.4); Monocytes # 0.8 10^3/uL (0.2-0.9); Monocytes % 12.3 %; Neutrophils # 3.16 10^3/uL (1.8-7.7); Neutrophils % 50.4 %; Nucleated Red Blood Cells % 0 %; Platelet Count 262 10^3/cmm (130-400); Red Cell Distribution Width 13.9 % (12.1-15.1); White Blood Count 6.3 10^3/uL (4.0-10.0)
[2020-02-09 07:10] LABS: Alanine Aminotransferase 17 U/L (0-33); Albumin Level 3.8 g/dL (3.5-5.2); Alkaline Phosphatase 73 IU/L (35-105); Anion Gap 12.6 (5-19); Aspartate Amino Transferase 17 U/L (0-32); Blood Urea Nitrogen 4 mg/dL (6-20); Calcium 8.6 mg/dL (8.5-10.5); Carbon Dioxide 24 mmol/L (22-29); Chloride 105 mmol/L (98-107); Globulin 2.4 g/dL (1.3-4.6); Glomerular Filtration Rate 74.5 mL/min (90-130); Glucose 128 mg/dL (65-115); Osmolality Calculated 285 mOsm/kg (285-295); Potassium 3.6 mmol/L (3.5-5.1); Sodium 138 mmol/L (136-145); Total Bilirubin 0.3 mg/dL (0.15-1.2); Total Protein 6.2 g/dL (6.6-8.7)
--- NOTE | 2020-02-09 07:32 | P.PN_ITS ---
Subjective Subjective: Interval history: Patient doing well, denies any significant pain, feels a lot better today, states that she is hungry Vitals/I&O/Wt Last Vital Signs Temp 98.1 F 02/09/20 07:21 Pulse 84 02/09/20 07:21 Resp 18 02/09/20 07:21 BP 134/78 02/09/20 07:21 Pulse Ox 97 02/09/20 07:21 02/08/20 02/09/20 02/09/20 22:59 06:59 14:59 Intake Total 1472.5 / 1522.5 50 / 1522.5 Balance 1472.5 / 1522.5 50 / 1522.5 Physical Exam Narrative: EXAM NARRATIVE: Abdomen: Soft, nondistended, nontender Data : 02/09/20 06:35 02/09/20 06:35 Micro: Microbiology 02/07/20 07:09 Urine Culture - Preliminary Urine,Clean Catch Gram Negative Rods A&P Assessment and plan (1) Ulcer of antrum of stomach: 53-year-old female with upper GI bleed noted on CT scan to have es ophagitis and antral ulcer. Patient is currently hemodynamically stable and her hemoglobin is down to 12.9 today from 14.6 on admission. She is tolerating clear liquid diet and has not had any nausea or emesis overnight Continue Protonix 40 mg IV twice daily Add sucralfate She could go home today on a full liquid diet, advance as tolerated and Protonix 40 mg twice daily and Carafate 1 g every 6. Follow-up in 2 weeks as an outpatient to schedule EGD/colonoscopy Status: Acute Attestations Medical Necessity Statement*: GI bleed Coding Level of Care Code Acute Business Services Vice President for Yanely Whalen Diagnoses Ulcer of antrum of stomach K25.9
[2020-02-09] MEDS: ipratropium-albuterol 3 mL Neb INHALATION (08:00)
[2020-02-09] MEDS: budesonide 0.5 mg/2 mL Neb INHALATION (08:00)
[2020-02-09] MEDS: dextrose 5%-ns + KCl 20 20 MEQ/1,000 ML BAG 75 MEQ IV (08:47)
[2020-02-09] MEDS: montelukast sodium 10 mg Tablet PO (08:48)
[2020-02-09] MEDS: sucralfate 1 gm/10 mL Oral Liq UDC PO ×2 (08:48→10:47)
[2020-02-09] MEDS: atorvastatin 40 mg Tablet PO (08:48)
[2020-02-09] MEDS: pantoprazole DR 40 mg Tablet PO (09:22)
--- NOTE | 2020-02-09 12:59 | PC.NURSE ---
Discharge instructions given to patient. Went over instruction with the patient all questions answered. IV catheter removed. Catheter tip intact. dressing applied, 2x2 and coban. Patient tolerated well. Patient in stable condition.
--- NOTE | 2020-02-09 17:11 | PM.DCS ---
Discharge Providers Date of Admission: 02/07/20 09:15 Date of Discharge: February 09, 2020 Attending Provider at Admission: Kassidy Yuan MD Attending Provider at Discharge: Kassidy Yuan MD Primary Care Provider: ROMELIA Cha Diagnoses at Discharge Discharge Diagnosis (1) Ulcer of antrum of stomach: Status: Acute Reason for Visit Reason for Visit: Throwing up Blood Hospital Course Hospital Course Michelle Leone is a 54 year old female with PMH CKD stage 3a, DM, HTN, chronic pain , GERD presented to ER today with c/o hemetmesis, multiple episodes that started last night. She reports multiple episodes of vomting followed therefater by bright red blood without any other contents. She used to be on ranitidine chronically until it was discontinued 2 months ago. Also reports abdominal pain. 7/[address] showed presence of antral ulcer. Her Hb remained stable during admission,no hypotension. hematemesis resolved. Abdominal pain imrpoved. She was treated with Protonix 40mg BID and Carafate with improvement. Discharged today in stable condition with advise to follow up with Dr. Pastrana in 2 weeks for endoscopy. Also c/o dysuria, UA conecrning for UTI, urine cx with GNR pending final identification. She was treated with CTX in the hospital, transitioned to po cipro on discharge Physical Exam Narrative: EXAM NARRATIVE: Awake, alert and oriented S1S2 N, no murmurmurs Chest clear to auscultation B/L abdomen soft, Nt/ND, BS+ No focal neuro deficits Discharge Data Data Completed and Pending: Completed Studies During Hospitalization Category Date Time Status CT abdomen pelvis w con* [id number] Stat Cat Scan 02/07/20 06:40 Completed XR chest 1V annette ble [id number] Stat Exams 02/07/20 06:39 Completed Labs from last 24 hours 02/09/20 02/09/20 02/07/20 06:35 06:35 19:05 WBC 6.3 RBC 4.30 Hgb 12.9 Hct 37.7 MCV 87.7 MCH 30.0 MCHC 34.2 RDW 13.9 Plt Count 262 MPV 9.3 Neut % (Auto) 50.4 Lymph % (Auto) 34.9 Mccormick % (Auto) 12.3 Eos % (Auto) 1.6 Baso % (Auto) 0.6 Neut # (Auto) 3.16 Lymph # (Auto) 2.2 Mccormick # (Auto) 0.8 Eos # (Auto) 0.1 Baso # (Auto) 0.0 Nucleated RBC % (a uto) 0 Nucleated RBCs # 0.0 Sodium 138 Potassium 3.6 Chloride 105 Carbon Dioxide 24 Anion Gap 12.6 BUN 4 L Creatinine 0.8 GFR Calculation 74.5 L Glucose 128 H Calculated Osmolal ity 285 Calcium 8.6 Total Bilirubin 0.3 AST 17 ALT 17 Alkaline Phosphata se 73 Total Protein 6.2 L Albumin 3.8 Globulin 2.4 Gastric Occult Blo od Negative Vitals: Last Vital Signs Temp 98.8 F 02/09/20 13:12 Pulse 116 H 02/09/20 13:12 Resp 18 02/09/20 13:12 BP 144/87 02/09/20 13:12 Pulse Ox 90 02/09/20 13:12 Discharge Plan Discharge Patient Disposition: Home Condition: Stable Prescriptions: New pantoprazole 40 mg Tablet,Delayed Release (Dr/Ec) 40 mg PO BID 30 Days Qty: 60 RF: 0 sucralfate 1 gram tablet 1 g PO BID 28 Days Qty: 56 RF: 0 Cipro 500 mg tablet 500 mg PO BID 2 Days Qty: 4 RF: 0 Continued atorvastatin 40 mg tablet 40 mg PO DAILY 30 Days Qty: 30 RF: 3 Symbicort 160-4.5 mcg/actuation HFA aerosol inhaler 2 puff INHALATION BID 30 Days Qty: 10.2 RF: 3 citalopram [Celexa] 20 mg tablet 20 mg PO QAM Qty: 30 RF: 4 albuterol sulfate [ProAir HFA] 90 mcg/actuation HFA aerosol inhaler 2 puff INHALATION Q6H PRN (Reason: shortness of breath or wheezing) Qty: 18 RF: 3 montelukast [Singulair] 10 mg tablet 10 mg PO DAILY 30 Days Qty: 30 RF: 5 hydroxyzine HCl 50 mg tablet 50 mg PO BID PRN (Reason: Anxiety) RF: 0 vitamin B complex Tablet 1 tab PO DAILY RF: 0 cranberry extract-vitamin C 250-60 mg Capsule 1 cap PO PRN RF: 0 Seroquel 300 mg tablet 600 mg PO BEDTIME RF: 0 ondansetron HCl 4 mg tablet 4 mg PO Q8H PRN (Reason: Nausea And Vomiting) RF: 0 Discharge Orders: Discharge Order (Routine); Ordered 02/09/20 Ordered By: Kassidy Yuan Referrals: Delvin Casey MD [Physician] - (please call for appointment) Hay Pastrana MD [Physician] - 02/22/20 2:15 pm Discharge Diet: Full LIquid Discharge Activity: Resume usual activity Patient Instructions: Ciprofloxacin (By mouth), Sucralfate (By mouth), Pantoprazole (By mouth), Peptic Ulcer (DC) Discharge Attestations Time Spent in Discharge Care*: greater than 30 min Quality Metrics Clinical Quality Measures During this hospital stay, did patient experience: None Coding Level of Care Code Acute 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
== END 2020-02-09 13:13 | disposition home or self-care (01) ==
LOC: ER 08:26 → MEDSURG 09:34
PROVIDERS: Admitting Provider Student in an Organized Health Care Education/Training Program; Emergency Provider Family Medicine; PCP Nurse Practitioner; Visit Provider Student in an Organized Health Care Education/Training Program
DX: K25.9 Gastric ulcer, unspecified as acute or chronic, without hemorrhage or perforation (principal); J44.9 Chronic obstructive pulmonary disease, unspecified; E11.22 Type 2 diabetes mellitus with diabetic chronic kidney disease; I12.9 Hypertensive chronic kidney disease with stage 1 through stage 4 chronic kidney disease, or unspecified chronic kidney disease; N18.30 Chronic kidney disease, stage 3 unspecified; E78.5 Hyperlipidemia, unspecified; F17.210 Nicotine dependence, cigarettes, uncomplicated
CPT/HCPCS: 12345; 36415; 71045; 74177; 80053; 81001; 82271; 82550; 83690; 83735; 85014; 85018; 85025; 85610; 85730; 86850; 86900; 87077; 87086; 87186; 93005; 94640; 96361; 96365; 96375; 99283; 99285; C9113; G0378; J0696; J2060; J2270; J2405; J2765; J7030; J7626; J7799; Q0162; Q9967

== ENCOUNTER → 2020-03-15 08:00 | Outpatient (BNVA) | payer MEDICAID, SELFPAY | PROVIDERS: PCP Family Medicine Adult Medicine; Visit Provider Surgery | DX: Z11.59 Encounter for screening for other viral diseases (principal); K25.9 Gastric ulcer, unspecified as acute or chronic, without hemorrhage or perforation | CPT/HCPCS: 87635 ==

== ENCOUNTER 2020-03-21 06:54 | Day surgery (SDC) | payer MEDICAID, SELFPAY ==
[2020-03-17 10:50] VITALS: BMI 21.9
[2020-03-21] VITALS (8 sets, daily range): BP systolic 158–176; BP diastolic 98–132; PULSE 104–117; RESP 16–22; TEMP 36.2–36.4; O2SAT 95–100
[2020-03-21] MEDS: ondansetron 2 mg/ML SDV 2 mL 4 MG IVP (07:15)
[2020-03-21] MEDS: sodium chloride 0.9% 1,000 ML 30 ML IV (07:30)
--- NOTE | 2020-03-21 07:37 | ANES.PREANE2 ---
Pre-Anesthetic Assessment Pre-Anesthetic Assessment: Height/Weight: Height 1.55 m Weight 52.617 kg Temp Pulse Resp BP Pulse Ox 97.1 F L 117 H 22 H 167/104 98 03/21/20 07:15 03/21/20 07:15 03/21/20 07:15 03/21/20 07:15 03/21/20 07:15 Preop Diagnosis: panendoscopy Proposed Procedure: Operation Date: 03/21/20 08:00 Proposed Procedures p EGD/Colon 07806 K25.9(Not Applicable) - Hay Pastrana MD s Colonoscopy 31141 Z12.11(Not Applicable) - Hay Pastrana MD Familial anesthetic complications: none Was Beta Alo taken within 24 hours: N/A Last intake: Intake Last Liquid Date 03/20/20 Last Liquid Time 23:30 Last Solid Date 03/19/20 Last Solid Time 21:00 Social: Social History: Tobacco and No alcohol Comment: patient smokes pot, denies use of any other street drugs Exam: Pre-Anes Outpt Exam: alert, oriented x 3, clear to auscultation bilaterally and regular rate & rhythm Airway: Cervical ROM: WNL MP: 3 Dentition: Other (no teeth) Pulmonary: Pulmonary: COPD (inhalers) : : Chronic renal Insufficiency GI: GI: GERD Comments: hx gastric bleed with ulcer - patient started vomiting up blood tinged contents last night, continuing this morning with abdominal pain. Zofran and fentanyl given Anesthetic Plan: ASA status: 3 Anesthesia: General Other: patient continuing to vomit blood-tinged fluid this morning, would require RSI Risk of > 500 ml blood loss (7ml/kg in children): No Meds/Allergies Current Medications: Current Medications Generic Name Dose Route Start Last Admin Trade Name Freq PRN Reason Stop Dose Admin Sodium Chloride 1,000 mls @ 30 ml s/hr 03/21/20 07:15 03/21/20 07:30 Sodium Chloride 0.9% IV 03/22/20 07:14 30 mls/hr .Q24H QUYEN Administration Ondansetron HCl 4 mg 03/21/20 07:11 03/21/20 07:15 Ondansetron 2 Mg /Ml Sdv 2 Ml IVP 4 mg Q15M PRN Administration Nausea/Vomiting P ACU PHASE II PFSH Anesthesia PFSH: Medical History Bipolar affective disorder, mixed, severe, with psychotic behavior CKD (chronic kidney disease) stage 3, GFR 30-59 ml/min COPD (chronic obstructive pulmonary disease) Dyslipidemia GERD (gastroesophageal reflux disease) Social History Smoking and tobacco status: current every day smoker cigarettes Packs smoked per day: 0.5 Second hand smoke exposure: Yes Alcohol intake: never Data Anesthesia Cardiac Studies: No Data to Display
[2020-03-21] MEDS: fentaNYL 50 mcg/mL INJ 2mL 25 MCG IVP (07:48)
[2020-03-21 07:56] LABS: Basophils % 0.3 %; Eosinophils % 0.1 %; Hemoglobin 13.6 g/dL (11.5-15.3); Lymphocytes # 0.7 10^3/uL (0.8-4.8); Lymphocytes % 5.7 %; Mean Corpuscular Hemoglobin 30.4 pg (28.0-34.0); Mean Corpuscular Volume 89.3 fL (81-99); Mean Platelet Volume 9.2 fL (7.4-10.4); Monocytes # 0.6 10^3/uL (0.2-0.9); Monocytes % 4.9 %; Neutrophils # 10.87 10^3/uL (1.8-7.7); Neutrophils % 88.7 %; Nucleated Red Blood Cells % 0 %; Platelet Count 348 10^3/cmm (130-400); Red Blood Count 4.48 10^6/uL (4.1-5.3); Red Cell Distribution Width 13.6 % (12.1-15.1); White Blood Count 12.3 10^3/uL (4.0-10.0)
[2020-03-21 08:12] LABS: Amphetamines Screen Urine Negative (Negative); Barbiturates Screen Urine Negative (Negative); Benzodiazepines Screen Urine Negative (Negative); Cocaine Screen Urine Negative (Negative); Opiate Screen Urine Negative (Negative); PCP Screen Urine Negative (Negative); THC Screen Urine Positive (Negative)
--- NOTE | 2020-03-21 09:15 | P.HP_ITS ---
Same Day Surgery H&P Indication for Procedure/HPI DATE OF PROCEDURE: March 21, 2020 CHIEF COMPLAINT/INDICATIONFOR SURGICAL PROCEDURE: gastric ulcer, screening PREOP DIAGNOSIS: panendoscopy PLANNED PROCEDRUE: Operation Date: 03/21/20 08:00 Proposed Procedures p EGD/Colon 24849 K25.9(Not Applicable) - Hay Pastrana MD s Colonoscopy 87959 Z12.11(Not Applicable) - Hay Pastrana MD Medications/Allergies* Home Medications Medication Instructions Recorded Confirmed Type cranberry extract-vitamin C 1 cap PO DAILY 02/07/20 03/21/20 History vitamin B complex 1 tab PO DAILY 02/07/20 03/17/20 History Allergies/Adverse Reactions Allergy/AdvReac Type Severity Reaction Status Date / Time codeine Allergy Unknown Unknown Verified 02/18/20 09:14 Current Medications: Generic Name Dose Route Start Last Admin Trade Name Freq PRN Reason Stop Dose Admin Sodium Chloride 1,000 mls @ 30 mls/hr 03/21/20 07:15 03/21/20 07:30 Sodium Chloride 0.9% IV 03/22/20 07:14 30 mls/hr .Q24H QUYEN Administration Ondansetron HCl 4 mg 03/21/20 07:11 03/21/20 07:15 Ondansetron 2 Mg/Ml Sdv 2 Ml IVP 4 mg Q15M PRN Administration Nausea/Vomiting PACU PHASE II Pertinent History/Comorbid Conditions* Medical History (Updated 02/18/20 @ 10:20 by Hay Pastrana MD) Bipolar affective disorder, mixed, severe, with psychotic behavior CKD (chronic kidney disease) stage 3, GFR 30-59 ml/min COPD (chronic obstructive pulmonary disease) Dyslipidemia GERD (gastroesophageal reflux disease) Social History Smoking and tobacco status: current every day smoker cigarettes Packs smoked per day: 0.5 Second hand smoke exposure: Yes Alcohol intake: never Pertinent Exam Findings alert, oriented x 3 and regular rate & rhythm Recommendations Surgery/Procedure today Coding Level of Care Code Acute Field Clinical Engineer for Carinag Marlee
--- NOTE | 2020-03-21 14:10 | ANE.PACU2 ---
Inpatient post-anesthesia follow up: Airway intact: Yes Vital signs: Temperature 97.5 F Pulse Rate 114 Respiratory Rate 18 Blood Pressure 164/132 Pulse Oximetry 98 Oxygen Delivery Me thod Room Air Oxygen Flow Rate 6 Fraction of Inspir ed Oxygen Hydration adequate: Yes Nausea and vomiting: No Pain level: 1 Mental status: Baseline
== END 2020-03-21 10:28 | disposition home or self-care (01) ==
PROVIDERS: Anesthesiology; PCP Family Medicine Adult Medicine; Visit Provider Surgery
PROC: 0DJ08ZZ Inspection of Upper Intestinal Tract, Via Natural or Artificial Opening Endoscopic (ICD-10-PCS; CPT 43235; principal; 2020-03-21 08:00)
PROC: 0DJD8ZZ Inspection of Lower Intestinal Tract, Via Natural or Artificial Opening Endoscopic (ICD-10-PCS; CPT 45330; 2020-03-21 08:00)
DX: Z12.11 Encounter for screening for malignant neoplasm of colon (principal); K25.9 Gastric ulcer, unspecified as acute or chronic, without hemorrhage or perforation; K22.2 Esophageal obstruction; K44.9 Diaphragmatic hernia without obstruction or gangrene; J44.9 Chronic obstructive pulmonary disease, unspecified; K21.9 Gastro-esophageal reflux disease without esophagitis; N18.30 Chronic kidney disease, stage 3 unspecified; E78.5 Hyperlipidemia, unspecified; F17.210 Nicotine dependence, cigarettes, uncomplicated
CPT/HCPCS: 12345; 43239; 45330; 80306; 85025; 88305; 96374; 96375; J0330; J2405; J2704; J3010; J7030

== ENCOUNTER → 2020-03-27 09:34 | Outpatient (BNVA) | payer MEDICAID, SELFPAY | PROVIDERS: PCP Family Medicine Adult Medicine; Visit Provider Nurse Practitioner Psychiatric/Mental Health | DX: F31.64 Bipolar disorder, current episode mixed, severe, with psychotic features (principal); F43.12 Post-traumatic stress disorder, chronic; F12.20 Cannabis dependence, uncomplicated; F17.290 Nicotine dependence, other tobacco product, uncomplicated; Z79.899 Other long term (current) drug therapy | CPT/HCPCS: 99214 ==

== ENCOUNTER → 2020-05-01 08:31 | Outpatient (BNVA) | payer MEDICAID, SELFPAY | PROVIDERS: PCP Family Medicine Adult Medicine; Visit Provider Social Worker Clinical | DX: F43.12 Post-traumatic stress disorder, chronic (principal); F31.5 Bipolar disorder, current episode depressed, severe, with psychotic features | CPT/HCPCS: 90791 ==

== ENCOUNTER → 2020-06-01 08:13 | Outpatient (BNVA) | payer MEDICAID, SELFPAY | PROVIDERS: PCP Family Medicine Adult Medicine; Visit Provider Social Worker Clinical | DX: F43.12 Post-traumatic stress disorder, chronic (principal); F31.64 Bipolar disorder, current episode mixed, severe, with psychotic features | CPT/HCPCS: 90834 ==

== ENCOUNTER → 2020-06-19 08:33 | Outpatient (BNVA) | payer MEDICAID, SELFPAY | PROVIDERS: PCP Family Medicine Adult Medicine; Visit Provider Nurse Practitioner Psychiatric/Mental Health | DX: F31.64 Bipolar disorder, current episode mixed, severe, with psychotic features (principal); F43.12 Post-traumatic stress disorder, chronic; F12.20 Cannabis dependence, uncomplicated; F17.290 Nicotine dependence, other tobacco product, uncomplicated; Z79.899 Other long term (current) drug therapy | CPT/HCPCS: 99214 ==

== ENCOUNTER → 2020-06-22 11:49 | Outpatient (BNVA) | payer MEDICAID, SELFPAY | PROVIDERS: PCP Family Medicine Adult Medicine; Visit Provider Social Worker Clinical | DX: F43.12 Post-traumatic stress disorder, chronic (principal); F31.64 Bipolar disorder, current episode mixed, severe, with psychotic features; F12.20 Cannabis dependence, uncomplicated | CPT/HCPCS: 90834 ==

== ENCOUNTER → 2020-07-04 11:19 | Outpatient (BNVA) | payer MEDICAID, SELFPAY | PROVIDERS: PCP Family Medicine Adult Medicine; Visit Provider Family Medicine Adult Medicine | DX: R63.4 Abnormal weight loss (principal); R73.09 Other abnormal glucose; R11.0 Nausea; J44.9 Chronic obstructive pulmonary disease, unspecified; E78.5 Hyperlipidemia, unspecified; K92.2 Gastrointestinal hemorrhage, unspecified; R10.84 Generalized abdominal pain | CPT/HCPCS: 80053; 83036; 85025 ==

== ENCOUNTER 2020-07-16 12:39 | Emergency (ER) | payer MEDICAID, SELFPAY ==
[2020-07-16 13:09] VITALS: BP 177/102; PULSE 108; RESP 20; TEMP 37.1; O2SAT 97; BMI 18.5
[2020-07-16 13:31] VITALS: BP 162/93; PULSE 103; RESP 22; O2SAT 100
--- NOTE | 2020-07-16 13:46 | XRR_ITS ---
PROCEDURE INFORMATION: Exam: XR Chest Exam date and time: 07/16/2020 1:50 PM Age: 55 years old Clinical indication: Other: N/v weight loss TECHNIQUE: Imaging protocol: XR of the chest. Views: 1 view. COMPARISON: CR XR chest 1V portable [id number] 02/07/2020 7:09 AM FINDINGS: Lungs: The lungs are somewhat hyperinflated with increased interstitial markings, likely representing COPD. No evidence of focal consolidation to suggest pneumonia. Pleural spaces: Unremarkable. No pleural effusion. No pneumothorax. Heart/Mediastinum: Unremarkable. No cardiomegaly. Bones/joints: Unremarkable. XR/XR chest 1V portable [id number] IMPRESSION: No evidence of focal consolidation. COPD changes.
--- NOTE | 2020-07-16 13:48 | W.ED.NAVMDI ---
HPI - Nausea/Vomiting/Diarrhea General: Chief complaint: Nausea/Vomiting/Diarrhea Stated complaint: N/V,NO INTAKE, KID DISEASE,WEAK,LOSING WT Time Seen by Provider: 07/16/20 13:29 Source: patient and family Mode of arrival: ambulatory Limitations: no limitations History of Present Illness: HPI Narrative: This is a 55-year-old female with a history of COPD who presents to the emergency department with nausea and vomiting of 10 days duration. She states that she has been unable to keep anything down. She vomited several times a day although she said in the last few days it has just been dry heaving as her stomach is empty. She also complains of constipation and cannot remember the last time she had a bowel movement. She does say it has been more than a week since she had a bowel movement. She endorses abdominal pain radiating to her back. She denies any fever or sick contacts. She denies any urinary symptoms MD elicited complaint: nausea, vomiting and abdominal pain Onset (ago): day(s) (10) Description of vomiting: food contents Associated nausea: Yes Associated abdominal pain: Yes Location of pain: Diffuse Pain consistency: constant Quality: cramping Exacerbating factors: eating Relieving factors: none Associated symtoms: Reports nausea; Denies altered mental status, anxiety, bloating, change in vision, chest pain, cough, diaphoresis, decreased urine output, dizziness, dysuria, epistaxis, fatigue, fecal incontinence, fevers/chills, headache(s), anorexia, malaise, myalgias, numbness, palpitations, rash, short of breath, syncope, tenesmus, tinnitus or weakness Review of Systems General: Reports: 10 or more systems reviewed and unremarkable except in HPI and below Const: Denies: fatigue, malaise or diaphoresis Eyes: Denies: change in vision ENMT: Denies: tinnitus or epistaxis Card: Denies: chest pain, palpitations or syncope GI: Reports: nausea; Denies: bloating or fecal incontinence : Denies: dysuria Neuro: Denies: headache(s) or dizziness Psych: Denies: anxiety PFS ED PFSH: Medical History (Reviewed 07/16/20 @ 13:54 by Adrienne Diez MD, [facility] [place]) Acute upper gastrointestinal bleeding Bipolar affective disorder, mixed, severe, with psychotic behavior Cannabis dependence with current use Chronic post-traumatic stress disorder CKD (chronic kidney disease) stage 3, GFR 30-59 ml/min COPD (chronic obstructive pulmonary disease) Dyslipidemia Elevated hemoglobin A1c GERD (gastroesophageal reflux disease) GI (gastrointestinal bleed) Nicotine dependence, other tobacco product, uncomplicated Weight loss, abnormal Surgical History (Reviewed 07/16/20 @ 13:54 by Adrienne Diez MD, [facility] [place]) H/O esophagogastroduodenoscopy (03/21/20) Social History (Reviewed 07/16/20 @ 13:54 by Adrienne Diez MD, [facility] [place]) Smoking and tobacco status: current every day smoker cigarettes Packs smoked per day: 0.5 Second hand smoke exposure: Yes Alcohol intake: never Physical Exam Const: COMMON NORMALS: no acute distress, average body habitus, patient oriented x3, no limitations, healthy appearing, alert and well nourished EXAM LIMITATIONS: no altered mental status HENMT: COMMON NORMALS: normocephalic, atraumatic and moist oral mucous membranes HEAD & SCALP: normocephalic and atraumatic Neck/C-Spine: COMMON NORMALS: no meningeal signs and no JVD Resp: COMMON NORMALS: normal respiratory effort, No retractions, No use of accessory muscles, clear to auscultation bilaterally and percussion normal AUSCULTATION: clear to auscultation bilaterally PERCUSSION: percussion normal Cardio: COMMON NORMALS: no JVD, regular rate, regular rhythm, S1 normal heart sound present, S2 normal heart sound present, No gallops present (Cardio), No clicks present (Cardio), No murmurs present (Cardio), No rub (Cardio) and Peripheral pulses 2+ throughout RATE: regular rate RHYTHM: regular rhythm HEART SOUNDS: S1 normal heart sound present and S2 normal heart sound present PERIPHERAL PULSES: Peripheral pulses 2+ throughout GI: COMMON NORMALS: Normal to inspection, nondistended, normoactive bowel sounds present, Soft to palpation, No hepatosplenomegaly present, no masses and no bruits PALPATION: Yes Soft to palpation, Yes Tenderness to palpation present (GI) (diffuse), Yes Guarding due to palpation present (GI) and Yes No hepatosplenomegaly present Extremity: COMMON NORMALS: normal to inspection, full ROM, capillary refill normal, no calf tenderness and no pedal edema Neuro: COMMON NORMALS: patient oriented x3 SENSORIUM/ORIENTATION: Yes alert MENINGEAL SIGNS: Yes no meningeal signs Skin: COMMON NORMALS: no rashes or lesions noted, no wounds, turgor normal, no jaundice, no petechiae and no mottling GENERAL SKIN EXAM: no rashes or lesions noted and turgor normal Course Reevaluation(s): Reevaluation #1: Discussed her lab and imaging findings with her. She has a urinary tract infection as well as constipation. She was given a dose of intravenous ceftriaxone in the emergency department and will be discharged home with a prescription for lactulose. She voiced understanding and is in agreement with the plan. Time: 15:34 Vital Signs: Vital signs: Vital Signs Temperature 98.7 F 07/16/20 13:09 Pulse Rate 115 H 07/16/20 16:15 Respiratory Rate 22 H 07/16/20 13:31 Blood Pressure 162/93 07/16/20 16:15 Pulse Oximetry 98 07/16/20 16:15 MDM - Nausea/Vomiting/Diarrhea MDM Narrative: Medical decision making narrative: 55-year-old female patient who presents to the emergency department with nausea and vomiting, constipation, and abdominal pain. Symptoms are most likely a combination of several factors including a UTI, constipation of unknown etiology leading to the nausea and vomiting. She was given intravenous ceftriaxone in the emergency department and discharged home on oral antibiotic. She is discharged home also with oral laxative. She is to follow-up with her primary care provider. Medical Records: Attestation: I reviewed the patient's medical records. Lab Data: Attestation: I reviewed the patient's lab results. Labs: Lab Results 07/16/20 07/16/20 07/16/20 Range/Units 13:48 13:48 13:48 WBC 8.0 (4.0-10.0) 10^3/ uL RBC 4.53 (4.1-5.3) 10^6/u L Hgb 13.6 (11.5-15.3) g/dL Hct 40.2 (37.0-47.0) % MCV 88.7 (81-99) fL MCH 30.0 (28.0-34.0) pg MCHC 33.8 (30.0-36.0) g/dL RDW 13.2 (12.1-15.1) % Plt Count 305 (130-400) 10^3/c mm MPV 9.4 (7.4-10.4) fL Neut % (Auto) 69.1 % Lymph % (Auto) 16.9 % Pershing % (Auto) 12.2 % Eos % (Auto) 0.9 % Baso % (Auto) 0.7 % Neut # (Auto) 5.53 (1.8-7.7) 10^3/u L Lymph # (Auto) 1.4 (0.8-4.8) 10^3/u L Pershing # (Auto) 1.0 H (0.2-0.9) 10^3/u L Eos # (Auto) 0.1 (0.0-0.8) 10^3/u L Baso # (Auto) 0.1 (0.0-0.1) 10^3/u L Nucleated RBC % (a uto) 0 % Nucleated RBCs # 0.0 /100WBC Sodium 133 L (136-145) mmol/L Potassium 3.7 (3.5-5.1) mmol/L Chloride 94 L (98-107) mmol/L Carbon Dioxide 25 (22-29) mmol/L Anion Gap 17.7 (5-19) BUN 12 (6-20) mg/dL Creatinine 1.0 H (0.5-0.9) mg/dL GFR Calculation 57.4 L (90-130) mL/min Glucose 154 H (65-115) mg/dL Calculated Osmolal ity 279 L (285-295) mOsm/k g Lactate 1.2 (0.5-2.2) mmol/L Calcium 9.2 (8.5-10.5) mg/dL Total Bilirubin 0.6 (0.15-1.2) mg/dL AST 28 (0-32) U/L ALT 24 (0-33) U/L Alkaline Phosphata se 83 (35-105) IU/L C-Reactive Protein 0.3 (0.0-4.9) mg/L Total Protein 7.7 (6.6-8.7) g/dL Albumin 4.5 (3.5-5.2) g/dL Globulin 3.2 (1.3-4.6) g/dL Lipase 25 (13-60) U/L Urine Color (Yellow) Urine Appearance (CLEAR) Urine pH (5-7) Ur Specific Gravit y (1.005-1.030) Urine Protein (Negative) Urine Glucose (UA) (Normal) Urine Ketones (Negative) Urine Blood (Negative) Urine Nitrate (Negative) Urine Bilirubin (Negative) Urine Urobilinogen (Negative) mg/dL Ur Leukocyte Audelia ase (Negative) Urine RBC (0-2) /hpf Urine WBC (0-5) /hpf Ur Squamous Epith Cells (0-5) /hpf Ur Transition Epit h Cell /hpf Amorphous Sediment Urine Bacteria (NONE) /hpf Urine Opiates Scre en (Negative) ng/mL Ur Barbiturates Sc reen (Negative) ng/mL Ur Phencyclidine S crn (Negative) ng/mL Ur Amphetamines Sc reen (Negative) ng/mL U Benzodiazepines Scrn (Negative) ng/mL Urine Cocaine Scre en (Negative) ng/mL U Marijuana (THC) Screen (Negative) ng/mL 07/16/20 07/16/20 Range/Units 14:03 14:03 WBC (4.0-10.0) 10^3/ uL RBC (4.1-5.3) 10^6/u L Hgb (11.5-15.3) g/dL Hct (37.0-47.0) % MCV (81-99) fL MCH (28.0-34.0) pg MCHC (30.0-36.0) g/dL RDW (12.1-15.1) % Plt Count (130-400) 10^3/c mm MPV (7.4-10.4) fL Neut % (Auto) % Lymph % (Auto) % Pershing % (Auto) % Eos % (Auto) % Baso % (Auto) % Neut # (Auto) (1.8-7.7) 10^3/u L Lymph # (Auto) (0.8-4.8) 10^3/u L Pershing # (Auto) (0.2-0.9) 10^3/u L Eos # (Auto) (0.0-0.8) 10^3/u L Baso # (Auto) (0.0-0.1) 10^3/u L Nucleated RBC % (a uto) % Nucleated RBCs # /100WBC Sodium (136-145) mmol/L Potassium (3.5-5.1) mmol/L Chloride (98-107) mmol/L Carbon Dioxide (22-29) mmol/L Anion Gap (5-19) BUN (6-20) mg/dL Creatinine (0.5-0.9) mg/dL GFR Calculation (90-130) mL/min Glucose (65-115) mg/dL Calculated Osmolal ity (285-295) mOsm/k g Lactate (0.5-2.2) mmol/L Calcium (8.5-10.5) mg/dL Total Bilirubin (0.15-1.2) mg/dL AST (0-32) U/L ALT (0-33) U/L Alkaline Phosphata se (35-105) IU/L C-Reactive Protein (0.0-4.9) mg/L Total Protein (6.6-8.7) g/dL Albumin (3.5-5.2) g/dL Globulin (1.3-4.6) g/dL Lipase (13-60) U/L Urine Color Yellow (Yellow) Urine Appearance Hazy A (CLEAR) Urine pH 6 (5-7) Ur Specific Gravit y 1.020 (1.005-1.030) Urine Protein Trace (Negative) Urine Glucose (UA) Norm (Normal) Urine Ketones 1+ H (Negative) Urine Blood 2+ H (Negative) Urine Nitrate Positive H (Negative) Urine Bilirubin 1+ H (Negative) Urine Urobilinogen 1 H (Negative) mg/dL Ur Leukocyte Audelia ase 1+ H (Negative) Urine RBC 15-25 H (0-2) /hpf Urine WBC 40-55 H (0-5) /hpf Ur Squamous Epith Cells 0-4 H (0-5) /hpf Ur Transition Epit h Cell 0-4 /hpf Amorphous Sediment Not Reportable Urine Bacteria 4+ H (NONE) /hpf Urine Opiates Scre en Negative (Negative) ng/mL Ur Barbiturates Sc reen Negative (Negative) ng/mL Ur Phencyclidine S crn Negative (Negative) ng/mL Ur Amphetamines Sc reen Negative (Negative) ng/mL U Benzodiazepines Scrn Negative (Negative) ng/mL Urine Cocaine Scre en Negative (Negative) ng/mL U Marijuana (THC) Screen Positive H (Negative) ng/mL Imaging Data^: Other Xray: Attestation: I personally reviewed and interpreted this imaging study as follows: Radiologist's impression: Leighton AlmodovarMiddlebourneANALY [id number] ReportSigned Patient: Michelle Leone #: [id number]: 1965Acct#:[id number]/Sex: 55 / FADM Date: 07/16/20Loc: ERRoom/Bed:Attending Dr: Ordering Provider/Ordering MD: Adrienne Diez MD, [facility] [place] Date of Service: 07/16/20 Procedure(s): XR abdomen 1V* [id number] Accession Number(s): [id number] Report Number: [id number] PROCEDURE INFORMATION: Exam: XR Abdomen Exam date and time: 07/16/2020 1:51 PM Age: 55 years old Clinical indication: Abdominal pain; Additional info: Constipation TECHNIQUE: Imaging protocol: XR of the abdomen. Views: Frontal supine view of the abdomen. 1 View. COMPARISON: CT abdomen pelvis w con* [id number] 02/07/2020 7:24 AM FINDINGS: Gastrointestinal tract: There is a moderate amount of stool throughout the colon and rectum, suggestive of constipation. Nonobstructive bowel gas pattern. Bones/joints: Unremarkable. XR/XR abdomen 1V* [id number] IMPRESSION: Imaging findings suggestive of constipation. Dictated By:Dolores Beltre By:Dolores Beltre Date/Time:07/16/20 1448DD/ 1446 CXR: Attestation: I personally reviewed and interpreted this imaging study as follows: Radiologist's impression: Leighton AlmodovarMiddlebourne [place] [address]OMji ReportSigned Patient: Michelle Leone #: [id number]: 1965Acct#:[id number]/Sex: 55 / FADM Date: 07/16/20Loc: ERRoom/Bed:Attending Dr: Ordering Provider/Ordering MD: Adrienne Diez MD, [facility] [place] Date of Service: 07/16/20 Procedure(s): XR chest 1V portable [id number] Accession Number(s): [id number] Report Number: [id number] PROCEDURE INFORMATION: Exam: XR Chest Exam date and time: 07/16/2020 1:50 PM Age: 55 years old Clinical indication: Other: N/v weight loss TECHNIQUE: Imaging protocol: XR of the chest. Views: 1 view. COMPARISON: CR XR chest 1V portable [id number] 02/07/2020 7:09 AM FINDINGS: Lungs: The lungs are somewhat hyperinflated with increased interstitial markings, likely representing COPD. No evidence of focal consolidation to suggest pneumonia. Pleural spaces: Unremarkable. No pleural effusion. No pneumothorax. Heart/Mediastinum: Unremarkable. No cardiomegaly. Bones/joints: Unremarkable. XR/XR chest 1V portable [id number] IMPRESSION: No evidence of focal consolidation. COPD changes. Dictated By:Dolores Beltre By:Dolores Beltre Date/Time:07/16/201447DD/ 46 Discharge Plan Discharge Patient Disposition: Home Clinical Impression: UTI (urinary tract infection) Qualifiers: Urinary tract infection type: acute cystitis Hematuria presence: without hematuria Qualified Code(s): N30.00 - Acute cystitis without hematuria Constipation Qualifiers: Constipation type: unspecified constipation type Qualified Code(s): K59.00 - Constipation, unspecified Condition: Stable Prescriptions: New Augmentin 500-125 mg tablet 1 tab PO BID Qty: 10 RF: 0 lactulose 10 gram/15 mL (15 mL) solution 10 g PO TID Qty: 600 RF: 0 Continued citalopram [Celexa] 20 mg tablet 20 mg PO QAM Qty: 30 RF: 6 hydroxyzine HCl 50 mg tablet 50 mg PO BID PRN (Reason: Anxiety) Qty: 60 RF: 4 Seroquel 300 mg tablet 600 mg PO BEDTIME Qty: 60 RF: 6 albuterol sulfate [ProAir HFA] 90 mcg/actuation HFA aerosol inhaler 2 puff INHALATION Q6H PRN (Reason: shortness of breath or wheezing) 30 Days Qty: 18 RF: 3 atorvastatin 40 mg tablet 40 mg PO DAILY 30 Days Qty: 30 RF: 5 Symbicort 160-4.5 mcg/actuation HFA aerosol inhaler 2 puff INHALATION BID 30 Days Qty: 10.2 RF: 3 ondansetron HCl 4 mg tablet 4 mg PO Q8H PRN (Reason: Nausea And Vomiting) Qty: 30 RF: 1 Protonix 40 mg tablet,delayed release (DR/EC) 40 mg PO BID 42 Days Qty: 60 RF: 5 montelukast [Singulair] 10 mg tablet 10 mg PO DAILY 30 Days Qty: 30 RF: 5 nicotine 14 mg/24 hr patch 24 hour 1 patch transdermal DAILY Qty: 14 RF: 0 vitamin B complex Tablet 1 tab PO DAILY RF: 0 cranberry extract-vitamin C 250-60 mg Capsule 1 cap PO DAILY RF: 0 Discharge Orders: Discharge ED (Routine); Ordered 07/16/20 Ordered By: Adrienne Diez Referrals: Delvin Casey MD [Primary Care Provider] - 1-3 days Discharge Diet: As Directed Discharge Activity: Increase activity as tolerated Patient Instructions: Constipation (ED), Urinary Tract Infection in Women (ED), High Fiber Diet (ED) Activity Restrictions/Additional Instructions: Return for any new or worsening symptoms. Follow-up with your primary care provider within 3 days. Consume a high-fiber diet. Drink plenty of fluids to keep well-hydrated. Take the medications as prescribed. Coding Level of Care Code ED Veneer Trimmer for Chg Fwd Exam Comprehensive
--- NOTE | 2020-07-16 13:50 | XRR_ITS ---
PROCEDURE INFORMATION: Exam: XR Abdomen Exam date and time: 07/16/2020 1:51 PM Age: 55 years old Clinical indication: Abdominal pain; Additional info: Constipation TECHNIQUE: Imaging protocol: XR of the abdomen. Views: Frontal supine view of the abdomen. 1 View. COMPARISON: CT abdomen pelvis w con* [id number] 02/07/2020 7:24 AM FINDINGS: Gastrointestinal tract: There is a moderate amount of stool throughout the colon and rectum, suggestive of constipation. Nonobstructive bowel gas pattern. Bones/joints: Unremarkable. XR/XR abdomen 1V* [id number] IMPRESSION: Imaging findings suggestive of constipation.
[2020-07-16] MEDS: ondansetron 2 mg/ML SDV 2 mL 4 MG IVP (13:53)
[2020-07-16] MEDS: sodium chloride 0.9% 1,000 ML 999 ML IV (13:53)
[2020-07-16 13:59] LABS: Basophils # 0.1 10^3/uL (0.0-0.1); Basophils % 0.7 %; Eosinophils # 0.1 10^3/uL (0.0-0.8); Eosinophils % 0.9 %; Hematocrit 40.2 % (37.0-47.0); Hemoglobin 13.6 g/dL (11.5-15.3); Lymphocytes # 1.4 10^3/uL (0.8-4.8); Lymphocytes % 16.9 %; Mean Corpuscular HGB Conc 33.8 g/dL (30.0-36.0); Mean Corpuscular Volume 88.7 fL (81-99); Mean Platelet Volume 9.4 fL (7.4-10.4); Monocytes % 12.2 %; Neutrophils # 5.53 10^3/uL (1.8-7.7); Neutrophils % 69.1 %; Nucleated Red Blood Cells % 0 %; Platelet Count 305 10^3/cmm (130-400); Red Blood Count 4.53 10^6/uL (4.1-5.3); Red Cell Distribution Width 13.2 % (12.1-15.1)
[2020-07-16 14:15] LABS: Alanine Aminotransferase 24 U/L (0-33); Albumin Level 4.5 g/dL (3.5-5.2); Alkaline Phosphatase 83 IU/L (35-105); Anion Gap 17.7 (5-19); Aspartate Amino Transferase 28 U/L (0-32); Blood Urea Nitrogen 12 mg/dL (6-20); C Reactive Protein 0.3 mg/L (0.0-4.9); Calcium 9.2 mg/dL (8.5-10.5); Carbon Dioxide 25 mmol/L (22-29); Chloride 94 mmol/L (98-107); Globulin 3.2 g/dL (1.3-4.6); Glomerular Filtration Rate 57.4 mL/min (90-130); Glucose 154 mg/dL (65-115); Lipase 25 U/L (13-60); Osmolality Calculated 279 mOsm/kg (285-295); Potassium 3.7 mmol/L (3.5-5.1); Sodium 133 mmol/L (136-145); Total Bilirubin 0.6 mg/dL (0.15-1.2); Total Protein 7.7 g/dL (6.6-8.7)
[2020-07-16 14:16] LABS: Lactate (Lactic Acid level) 1.2 mmol/L (0.5-2.2)
[2020-07-16 14:41] LABS: Add Urine Microscopic? YES; Bilirubin Urine 1+ (Negative); Blood Urine 2+ (Negative); Glucose Urine UA Norm (Normal); Ketones Urine 1+ (Negative); Leukocyte Esterase Urine 1+ (Negative); Nitrate Urine Positive (Negative); Protein Urine Trace (Negative); Urine Appearance Hazy (CLEAR); Urine Color Yellow (Yellow); Urobilinogen Urine 1 mg/dL (Negative); pH Urine 6 (5-7)
[2020-07-16 14:45] LABS: Bacteria Urine 4+ /hpf; RBC Urine 15-25 /hpf (0-2); Squamous Epithelial Cell Urine 0-4 /hpf (0-5); Transitional Epi Cells Urine 0-4 /hpf; WBC Urine 40-55 /hpf (0-5)
[2020-07-16 14:46] LABS: Add Urine Culture? Yes
[2020-07-16] MEDS: metoclopramide 5 mg/mL SDV 2 mL 10 MG IVP (14:50)
[2020-07-16 15:22] LABS: Amphetamines Screen Urine Negative (Negative); Barbiturates Screen Urine Negative (Negative); Benzodiazepines Screen Urine Negative (Negative); Cocaine Screen Urine Negative (Negative); Opiate Screen Urine Negative (Negative); PCP Screen Urine Negative (Negative); THC Screen Urine Positive (Negative)
[2020-07-16] MEDS: cefTRIAXone 1,000 MG in sodium chloride 0.9% (plus) 50 ML 100 MG IV (15:25)
[2020-07-16 15:29] VITALS: BP 162/93; PULSE 111; O2SAT 98
[2020-07-16 16:15] VITALS: BP 162/93; PULSE 115; O2SAT 98
== END 2020-07-16 16:18 | disposition home or self-care (01) ==
PROVIDERS: Emergency Provider Family Medicine; PCP Family Medicine Adult Medicine
DX: N30.00 Acute cystitis without hematuria (principal); K59.00 Constipation, unspecified; N18.30 Chronic kidney disease, stage 3 unspecified; J44.9 Chronic obstructive pulmonary disease, unspecified; E78.5 Hyperlipidemia, unspecified; F17.210 Nicotine dependence, cigarettes, uncomplicated
CPT/HCPCS: 71045; 74018; 80053; 80306; 81001; 83605; 83690; 85025; 86140; 87077; 87086; 87186; 96365; 96375; 99284; J0696; J2405; J2765; J7030

== ENCOUNTER → 2020-07-17 11:40 | Outpatient (BNVA) | payer MEDICAID, SELFPAY | PROVIDERS: PCP Family Medicine Adult Medicine; Visit Provider Social Worker Clinical | DX: F31.64 Bipolar disorder, current episode mixed, severe, with psychotic features (principal) | CPT/HCPCS: 90834 ==

== ENCOUNTER → 2020-08-08 11:29 | Outpatient (BNVA) | payer MEDICAID, SELFPAY | PROVIDERS: PCP Family Medicine Adult Medicine; Visit Provider Social Worker Clinical | DX: F31.64 Bipolar disorder, current episode mixed, severe, with psychotic features (principal); F43.12 Post-traumatic stress disorder, chronic; R10.84 Generalized abdominal pain | CPT/HCPCS: 90834 ==

== ENCOUNTER → 2020-09-06 14:45 | Outpatient (BNVA) | payer MEDICAID, SELFPAY | PROVIDERS: PCP Family Medicine Adult Medicine; Visit Provider Social Worker Clinical | DX: F31.64 Bipolar disorder, current episode mixed, severe, with psychotic features (principal); F43.12 Post-traumatic stress disorder, chronic | CPT/HCPCS: 90832 ==

== ENCOUNTER → 2020-09-11 14:45 | Outpatient (BNVA) | payer MEDICAID, SELFPAY | PROVIDERS: PCP Family Medicine Adult Medicine; Visit Provider Nurse Practitioner Psychiatric/Mental Health | DX: F31.64 Bipolar disorder, current episode mixed, severe, with psychotic features (principal); F43.12 Post-traumatic stress disorder, chronic; F17.290 Nicotine dependence, other tobacco product, uncomplicated; F12.20 Cannabis dependence, uncomplicated | CPT/HCPCS: 99214 ==

== ENCOUNTER → 2020-10-20 08:27 | Outpatient (BNVA) | payer MEDICAID, SELFPAY | PROVIDERS: PCP Family Medicine Adult Medicine; Visit Provider Social Worker Clinical | DX: F31.64 Bipolar disorder, current episode mixed, severe, with psychotic features (principal); F43.12 Post-traumatic stress disorder, chronic | CPT/HCPCS: 90832 ==

== ENCOUNTER → 2020-11-13 10:45 | Outpatient (BNVA) | payer MEDICAID, SELFPAY | PROVIDERS: PCP Family Medicine Adult Medicine; Visit Provider Social Worker Clinical | DX: F31.64 Bipolar disorder, current episode mixed, severe, with psychotic features (principal); F43.12 Post-traumatic stress disorder, chronic | CPT/HCPCS: 90834 ==

== ENCOUNTER → 2020-11-20 09:21 | Outpatient (BNVA) | payer MEDICAID, SELFPAY | PROVIDERS: PCP Family Medicine Adult Medicine; Visit Provider Family Medicine Adult Medicine | DX: K92.2 Gastrointestinal hemorrhage, unspecified (principal); E78.5 Hyperlipidemia, unspecified; J44.9 Chronic obstructive pulmonary disease, unspecified; N18.30 Chronic kidney disease, stage 3 unspecified | CPT/HCPCS: 80053; 80061; 85025 ==

== ENCOUNTER → 2020-12-12 10:14 | Outpatient (BNVA) | payer MEDICAID, SELFPAY | PROVIDERS: PCP Family Medicine Adult Medicine; Visit Provider Nurse Practitioner Psychiatric/Mental Health | DX: F31.64 Bipolar disorder, current episode mixed, severe, with psychotic features (principal); F43.12 Post-traumatic stress disorder, chronic; F12.20 Cannabis dependence, uncomplicated; F17.290 Nicotine dependence, other tobacco product, uncomplicated | CPT/HCPCS: 99214 ==

== ENCOUNTER → 2021-01-01 12:57 | Outpatient (BNVA) | payer MEDICAID, SELFPAY | PROVIDERS: PCP Family Medicine Adult Medicine; Visit Provider Social Worker Clinical | DX: F31.64 Bipolar disorder, current episode mixed, severe, with psychotic features (principal); F43.12 Post-traumatic stress disorder, chronic | CPT/HCPCS: 90832; 90834 ==

== ENCOUNTER → 2021-01-17 08:01 | Outpatient (BNVA) | payer MEDICAID, SELFPAY | PROVIDERS: PCP Family Medicine Adult Medicine; Visit Provider Social Worker Clinical | DX: F31.64 Bipolar disorder, current episode mixed, severe, with psychotic features (principal); F43.12 Post-traumatic stress disorder, chronic | CPT/HCPCS: 90832 ==

== ENCOUNTER → 2021-01-29 13:29 | Outpatient (BNVA) | payer MEDICAID, SELFPAY | PROVIDERS: PCP Family Medicine Adult Medicine; Visit Provider Nurse Practitioner Psychiatric/Mental Health | DX: F31.64 Bipolar disorder, current episode mixed, severe, with psychotic features (principal); F43.12 Post-traumatic stress disorder, chronic; F12.20 Cannabis dependence, uncomplicated; F17.290 Nicotine dependence, other tobacco product, uncomplicated | CPT/HCPCS: 99214 ==

== ENCOUNTER 2021-01-31 12:56 | Emergency (ER) | payer MEDICAID, SELFPAY ==
[2021-01-31 13:06] VITALS: BP 143/84; PULSE 113; RESP 22; TEMP 36.9; O2SAT 96; BMI 17.9
[2021-01-31 14:08] LABS: SARS Covid-2 Antigen Negative (Negative)
== END 2021-01-31 14:54 | disposition left against medical advice (07) ==
LOC: ER 13:22
PROVIDERS: Emergency Medicine; Emergency Provider Family Medicine; PCP Family Medicine Adult Medicine
DX: Z53.21 Procedure and treatment not carried out due to patient leaving prior to being seen by health care provider (principal)
CPT/HCPCS: 87426

== ENCOUNTER → 2021-02-14 07:47 | Outpatient (BNVA) | payer MEDICAID, SELFPAY | PROVIDERS: PCP Family Medicine Adult Medicine; Visit Provider Social Worker Clinical | DX: F31.64 Bipolar disorder, current episode mixed, severe, with psychotic features (principal); F43.12 Post-traumatic stress disorder, chronic | CPT/HCPCS: 90834 ==

== ENCOUNTER → 2021-03-14 08:52 | Outpatient (BNVA) | payer MEDICAID, SELFPAY | PROVIDERS: PCP Family Medicine Adult Medicine; Visit Provider Social Worker Clinical | DX: F31.64 Bipolar disorder, current episode mixed, severe, with psychotic features (principal); F43.12 Post-traumatic stress disorder, chronic | CPT/HCPCS: 90834 ==

== ENCOUNTER → 2021-04-03 11:53 | Outpatient (BNVA) | payer MEDICAID, SELFPAY | PROVIDERS: PCP Family Medicine Adult Medicine; Visit Provider Social Worker Clinical | DX: F31.64 Bipolar disorder, current episode mixed, severe, with psychotic features (principal); F43.12 Post-traumatic stress disorder, chronic | CPT/HCPCS: 90834 ==

== ENCOUNTER → 2021-05-01 14:20 | Outpatient (BNVA) | payer MEDICAID, SELFPAY | PROVIDERS: PCP Family Medicine Adult Medicine; Visit Provider Social Worker Clinical | DX: F31.64 Bipolar disorder, current episode mixed, severe, with psychotic features (principal); F43.12 Post-traumatic stress disorder, chronic | CPT/HCPCS: 90832 ==

== ENCOUNTER → 2021-06-12 13:30 | Outpatient (BNVA) | payer MEDICAID, SELFPAY | PROVIDERS: PCP Family Medicine Adult Medicine; Visit Provider Social Worker Clinical | DX: F31.64 Bipolar disorder, current episode mixed, severe, with psychotic features (principal); F43.12 Post-traumatic stress disorder, chronic | CPT/HCPCS: 90834 ==

== ENCOUNTER → 2021-06-27 09:53 | Outpatient (BNVA) | payer MEDICAID, SELFPAY | PROVIDERS: PCP Family Medicine Adult Medicine; Visit Provider Social Worker Clinical | DX: F31.64 Bipolar disorder, current episode mixed, severe, with psychotic features (principal); F43.12 Post-traumatic stress disorder, chronic | CPT/HCPCS: 90832 ==

== ENCOUNTER → 2021-07-20 15:08 | Outpatient (BNVA) | payer MEDICAID, SELFPAY | PROVIDERS: PCP Family Medicine Adult Medicine; Visit Provider Nurse Practitioner Psychiatric/Mental Health | DX: F31.64 Bipolar disorder, current episode mixed, severe, with psychotic features (principal); F43.12 Post-traumatic stress disorder, chronic; F12.20 Cannabis dependence, uncomplicated; F17.290 Nicotine dependence, other tobacco product, uncomplicated | CPT/HCPCS: 99214 ==

== ENCOUNTER → 2021-07-26 09:32 | Outpatient (BNVA) | payer MEDICAID, SELFPAY | PROVIDERS: PCP Family Medicine Adult Medicine; Visit Provider Social Worker Clinical | DX: F31.64 Bipolar disorder, current episode mixed, severe, with psychotic features (principal); F43.12 Post-traumatic stress disorder, chronic | CPT/HCPCS: 90834; 90832 ==

== ENCOUNTER → 2021-08-30 07:35 | Outpatient (BNVA) | payer MEDICAID, SELFPAY | PROVIDERS: PCP Family Medicine Adult Medicine; Visit Provider Social Worker Clinical | DX: F31.64 Bipolar disorder, current episode mixed, severe, with psychotic features (principal); F43.12 Post-traumatic stress disorder, chronic | CPT/HCPCS: 90832 ==

== ENCOUNTER 2021-10-08 07:39 | Emergency (ER) | payer MEDICAID, SELFPAY ==
[2021-10-08] VITALS (20 sets, daily range): BP systolic 96–147; BP diastolic 64–109; PULSE 76–92; RESP 14–20; TEMP 36.8; O2SAT 100; BMI 18.7
--- NOTE | 2021-10-08 07:41 | CTR_ITS ---
PROCEDURE INFORMATION: Exam: CT Head Without Contrast Exam date and time: 10/08/2021 7:37 AM Age: 56 years old Clinical indication: Stroke-like symptoms; Altered mental status/memory loss; Additional info: Stroke like symptoms TECHNIQUE: Imaging protocol: Computed tomography of the head without contrast. Radiation optimization: All CT scans at this facility use at least one of these dose optimization techniques: automated exposure control; mA and/or kV adjustment per patient size (includes targeted exams where dose is matched to clinical indication); or iterative reconstruction. Other technique: STROKE PROTOCOL was implemented. COMPARISON: No relevant prior studies available. RADIATION DOSE METRICS: Total DLP (mGy-cm): 1138.58 FINDINGS: Brain: Mild subarachnoid hemorrhage superior right interhemispheric fissure and superior perirolandic region. Intraparenchymal hemorrhage which appears to have an epicenter in the medial superior right occipital lobe region, (series 3, image 29; series 8, images 42-43; maximal dimensions including contralateral extension 3.1 x 2.2 x 4.6 cm) extending into the right lateral ventricle, and crossing midline within the splenium of the corpus callosum. Calcification is present immediately posterior lesion measuring 8.6 x 7.6 x 5.7 mm (series 8, image 41; series 3, image 30), with focal cortical encephalomalacia (series 8, image 39; series 3, image 27). Mild subarachnoid hemorrhage in the right interhemispheric fissure and superior perirolandic region. Ventricles: Hemorrhage is present in the bilateral lateral, 3rd and 4th ventricles, extending through the bilateral lateral foramina of Luschka. Casey ratio 36.3. Paranasal sinuses: Visualized sinuses are unremarkable. No fluid levels. Mastoid air cells: Visualized mastoid air cells are well aerated. Vasculature: Atherosclerotic calcifications are present involving the right carotid artery siphon. Bones/joints: No acute abnormality. No acute fracture. Soft tissues: Unremarkable. CT/CT head wo con* [id number] IMPRESSION: Right occipital lobe intraparenchymal hematoma crossing midline to the left, with intraventricular extension. Abnormal calcification and mild focal regional chronic encephalomalacia also present. Consider underlying vascular malformation. CTA of the head and MRI may add additional useful information. ASSESSMENT: ASPECTS (Nette Stroke Program Early CT Score) is 10 (no MCA infarction).
--- NOTE | 2021-10-08 07:43 | ECG_ITS ---
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 Measurements Intervals [place] Rate: 106 P: 84 OR: 143 QRS: 89 QRSD: 97 T: 89 QT: 343 QTc: 456 Interpretive Statements SINUS TACHYCARDIA RIGHT ATRIAL ENLARGEMENT [0.3mV P WAVE] LEFT ATRIAL ENLARGEMENT [-0.15mV P WAVE IN V1/V2] INTERPRETATION BASED ON A DEFAULT AGE OF 40 YEARS Compared to ECG 02/07/2020 15:26:07 Short OR interval no longer present Electronically Signed On 10-09-2021 0:41:22 CDT by Aimee Barnes M.D. [id number]
--- NOTE | 2021-10-08 07:45 | W.ED.NEUROSD ---
HPI - Neuro Symptoms/Deficit General: Chief Complaint: Neuro Symptoms/Deficit Stated Complaint: STROKE LIKE SYMPTOMS Time Seen by Provider: 10/08/21 07:41 Source: EMS Mode of arrival: EMS History of Present Illness: 56-year-old female who presents emergency room via EMS approximately 1 hour prior to arrival she was eating breakfast and suddenly became nonresponsive had not been complaining anything prior to that. Patient does have a history of CVA on arrival she is hypertensive. She is not on any anticoagulants. Onset (ago): minute(s) History of same: Yes (History of CVA) Severity: severe Quality: weak Relieving factors: none Exacerbating factors: none Context: sudden onset Associated symptoms: Deny chest pain, cough, diaphoresis, fevers/chills, anorexia, malaise, nausea, seizures, short of breath, tingling, vomiting or weakness Treatments Prior to Arrival: none Review of Systems General: Reports: ROS unobtainable due to medical condition Const: Denies: malaise or diaphoresis ENMT: Denies: throat pain, ear or mastoid pain, nasal discharge or nasal congestion Card: Denies: chest pain Resp: Denies: dyspnea, productive cough or non-productive cough GI: Denies: abdominal pain, nausea or vomiting : Denies: flank pain, difficulty voiding, dysuria, urinary frequency or urinary urgency Skin/Breast: Denies: rash or pruritus PFSH ED PFSH: Medical History Acute dysfunction of eustachian tube Acute upper gastrointestinal bleeding Bipolar affective disorder, mixed, severe, with psychotic behavior Cannabis dependence with current use Chronic constipation Chronic post-traumatic stress disorder CKD (chronic kidney disease) stage 2, GFR 60-89 ml/min COPD (chronic obstructive pulmonary disease) Cystitis Dyslipidemia Generalized postprandial abdominal pain GERD (gastroesophageal reflux disease) GI (gastrointestinal bleed) Nicotine dependence, other tobacco product, uncomplicated Prediabetes Psychiatric care Surgical History H/O esophagogastroduodenoscopy (03/21/20) Social History Smoking and tobacco status: current every day smoker cigarettes Packs smoked per day: 0.5 Second hand smoke exposure: Yes Alcohol intake: never Physical Exam HENMT: COMMON NORMALS: normocephalic, atraumatic and hearing grossly normal bilaterally HEAD & SCALP: normocephalic and atraumatic Resp: COMMON NORMALS: normal respiratory effort, No retractions, No use of accessory muscles and clear to auscultation bilaterally AUSCULTATION: clear to auscultation bilaterally Cardio: COMMON NORMALS: regular rate, regular rhythm and No murmurs present (Cardio) RATE: regular rate RHYTHM: regular rhythm GI: COMMON NORMALS: Soft to palpation and No hepatosplenomegaly present AUSCULTATION: Yes normoactive bowel sounds PALPATION: Yes Soft to palpation, No Tenderness to palpation present (GI), No Guarding due to palpation present (GI) and Yes No hepatosplenomegaly present Extremity: COMMON NORMALS: normal to inspection, capillary refill normal, no clubbing, cyanosis or edema, no calf tenderness and no pedal edema Skin: COMMON NORMALS: no rashes or lesions noted GENERAL SKIN EXAM: no rashes or lesions noted Procedures Intubation sedative: Etomidate paralytic: Succinylcholine Laryngoscope: fiber optic video scope ET Tube Size: 8 ET Tube Uncuffed: No Tube Secured Depth (cm): 22 Tube Placement Confirmation: visualized tube passing through cords, equal breath sounds bilaterally, no breath sounds over epigastrium and confirmation by capnometry Patient Tolerated Procedure: well Intubation Complications: none Additional Comments: Chest x-ray confirms placement Course Vital Signs: Vital signs: Vital Signs Temperature 98.2 F 10/08/21 08:07 Pulse Rate 76 10/08/21 09:45 Respiratory Rate 14 10/08/21 09:46 Blood Pressure 99/65 10/08/21 09:50 Pulse Oximetry 100 10/08/21 09:10 Oxygen Delivery Me thod 10/08/21 09:40 Fraction of Inspir ed Oxygen 50 10/08/21 09:46 MDM - Neuro Symptoms/Deficit Medical Decision Making CT shows large intracranial bleed. Patient intubated immediately after CT. Will transfer to tertiary care for neurosurgical evaluation. Medical Records I reviewed the patient's medical records. Lab Data I reviewed the patient's lab results. : 10/08/21 07:55 10/08/21 07:[address] 10/08/21 07:41 IMPRESSION: Right occipital lobe intraparenchymal hematoma crossing midline to the left, with intraventricular extension. Abnormal calcification and mild focal regional chronic encephalomalacia also present. Consider underlying vascular malformation. CTA of the head and MRI may add additional useful information. ASSESSMENT: ASPECTS ([place] Stroke Program Early CT Score) is 10 (no MCA infarction). ADDENDUM: 10/08/21 0758 THIS REPORT CONTAINS FINDINGS THAT MAY BE CRITICAL TO PATIENT CARE. The findings were verbally communicated by me to DR. BRETT SELLERS via telephone conference at 7:56 AM CDT on 10/08/2021. The findings were acknowledged and understood. Chest X-Ray 10/08/21 08:02 IMPRESSION: 1. Satisfactory position of the nasogastric and endotracheal tubes. 2. Chronic emphysema. Head/Neck CTA 10/08/21 08:14 IMPRESSION: 1. No cervical carotid artery stenosis. 2. Tangle of vessel associated with the calcifications along the RIGHT posterior parafalcine region. 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 There is marked intraventricular hemorrhage extending from from the fourth ventricle into the lateral ventricles. No midline shift but there is effacement of sulci consistent with cerebral edema. Cannot identify the discrete aneurysm associated with the AVM. 3. Cerebral edema has increased since the prior CT from early this morning. Notified Brett Sellers DO at 10/08/2021 9:00 AM. Laboratory Results WBC 20.9 10^3/uL (4.0-10.0) H 10/08/21 07:55 RBC 4.41 10^6/uL (4.1-5.3) 10/08/21 07:55 Hgb 13.8 g/dL (11.5-15.3) 10/08/21 07:55 Hct 40.5 % (37.0-47.0) 10/08/21 07:55 MCV 91.8 fl (81-99) 10/08/21 07:55 MCH 31.3 pg (28.0-34.0) 10/08/21 07:55 MCHC 34.1 g/dL (30.0-36.0) 10/08/21 07:55 RDW 12.6 % (12.1-15.1) 10/08/21 07:55 Plt Count 374 10^3/cmm (130-400) 10/08/21 07:55 MPV 9.4 fL (7.4-10.4) 10/08/21 07:55 Neut % (Auto) 82.9 % 10/08/21 07:55 Lymph % (Auto) 8.9 % 10/08/21 07:55 [place] % (Auto) 6.1 % 10/08/21 07:55 Eos % (Auto) 1.2 % 10/08/21 07:55 Baso % (Auto) 0.3 % 10/08/21 07:55 Neut # (Auto) 17.32 10^3/uL (1.8-7.7) H 10/08/21 07:55 Lymph # (Auto) 1.9 10^3/uL (0.8-4.8) 10/08/21 07:55 [place] # (Auto) 1.3 10^3/uL (0.2-0.9) H 10/08/21 07:55 Eos # (Auto) 0.3 10^3/uL (0.0-0.8) 10/08/21 07:55 Baso # (Auto) 0.1 10^3/uL (0.0-0.1) 10/08/21 07:55 Nucleated RBC % (auto) 0 % 10/08/21 07:55 Nucleated RBCs # 0.0 /100WBC 10/08/21 07:55 PT 12.60 SECONDS (12.1-14.9) 10/08/21 09:39 INR 0.92 (0.8-1.2) 10/08/21 09:39 APTT 24.8 SECONDS (23.9-36.7) 10/08/21 09:39 Sodium 138 mmol/L (136-145) 10/08/21 07:55 Potassium 4.9 mmol/L (3.5-5.1) 10/08/21 07:55 Chloride 98 mmol/L (98-107) 10/08/21 07:55 Carbon Dioxide 24 mmol/L (22-29) 10/08/21 07:55 Anion Gap 20.9 (5-19) H 10/08/21 07:55 BUN 13 mg/dL (6-20) 10/08/21 07:55 Creatinine 1.0 mg/dL (0.5-0.9) H 10/08/21 07:55 GFR Calculation 57.1 mL/min (90-130) L 10/08/21 07:55 Glucose 352 mg/dL (65-115) H 10/08/21 07:55 Calculated Osmolality 300 mOsm/kg (285-295) H 10/08/21 07:55 Calcium 9.6 mg/dL (8.5-10.5) 10/08/21 07:55 Total Bilirubin 0.4 mg/dL (0.15-1.2) 10/08/21 07:55 AST 20 U/L (0-32) 10/08/21 07:55 ALT 14 U/L (0-33) 10/08/21 07:55 Alkaline Phosphatase 94 IU/L (35-105) 10/08/21 07:55 Troponin T Baseline 22 ng/L (0-10) H 10/08/21 07:55 Troponin T 120 Minute 93.35 ng/L (0-10) H 10/08/21 09:39 Delta Troponin T 71.35 ABS# (0-10) H* 10/08/21 09:39 Total Protein 7.1 g/dL (6.6-8.7) 10/08/21 07:55 Albumin 4.3 g/dL (3.5-5.2) 10/08/21 07:55 Globulin 2.8 g/dL (1.3-4.6) 10/08/21 07:55 Urine Color Straw (Yellow) 10/08/21 08:42 Urine Appearance Hazy (CLEAR) A 10/08/21 08:42 Urine pH 6 (5-7) 10/08/21 08:42 Ur Specific [place] 1.015 (1.005-1.030) 10/08/21 08:42 Urine Protein Trace (Negative) 10/08/21 08:42 Urine Glucose (UA) 4+ (Normal) H 10/08/21 08:42 Urine Ketones Negative (Negative) 10/08/21 08:42 Urine Blood 2+ (Negative) H 10/08/21 08:42 Urine Nitrate Negative (Negative) 10/08/21 08:42 Urine Bilirubin Neg (Negative) 10/08/21 08:42 Urine Urobilinogen Norm mg/dL (Negative) 10/08/21 08:42 Ur Leukocyte Esterase Negative (Negative) 10/08/21 08:42 Urine RBC Rare /hpf (0-2) 10/08/21 08:42 Urine WBC 0-4 /hpf (0-5) H 10/08/21 08:42 Ur Squamous Epith Cells None /hpf (0-5) 10/08/21 08:42 Amorphous Sediment Not Reportable 10/08/21 08:42 Urine Bacteria 4+ /hpf (NONE) H 10/08/21 08:42 Salicylates < 0.3 mg/dL (3-10) L 10/08/21 07:55 Urine Opiates Screen Negative ng/mL (Negative) 10/08/21 08:42 Acetaminophen < 5.0 ug/mL (10-30) L 10/08/21 07:55 Ur Barbiturates Screen Negative ng/mL (Negative) 10/08/21 08:42 Ur Phencyclidine Scrn Negative ng/mL (Negative) 10/08/21 08:42 Ur Amphetamines Screen Negative ng/mL (Negative) 10/08/21 08:42 U Benzodiazepines Scrn Negative ng/mL (Negative) 10/08/21 08:42 Urine Cocaine Screen Negative ng/mL (Negative) 10/08/21 08:42 U Marijuana (THC) Screen Positive ng/mL (Negative) H 10/08/21 08:42 Ethyl Alcohol < 10 mg/dL (0-10) 10/08/21 07:55 Discharge Plan Discharge Patient Disposition: Xfer Short-Term Hosp Condition: Stable Referrals: Delvin Casey MD [Primary Care Provider] - Coding Level of Care Code ED Cooker Syrup for Yanely Whalen
[2021-10-08] MEDS: labetalol 5 mg/mL SDV 20mL 10 MG IVP (07:54)
--- NOTE | 2021-10-08 08:02 | XR_ITS ---
WS: [id number] PORTABLE CHEST HISTORY: tube placement COMPARISON: 07/16/2020 Endotracheal tube terminates several centimeters above the paul in good position. Nasogastric tube also present with tip in the mid body of the stomach. Lungs are hyperinflated with some mild interstitial thickening throughout. Normal vascularity. No pne umonia. Lung apices are excluded on both radiographs. No pleural effusion or pneumothorax. Cardiac size: Normal. Mediastinum/Aorta: Normal mediastinum. No osseous abnormality seen. XR/XR chest 1V portable [id number] IMPRESSION: 1. Satisfactory position of the nasogastric and endotracheal tubes. 2. Chronic emphysema.
[2021-10-08 08:14] LABS: Basophils # 0.1 10^3/uL (0.0-0.1); Basophils % 0.3 %; Eosinophils # 0.3 10^3/uL (0.0-0.8); Eosinophils % 1.2 %; Hematocrit 40.5 % (37.0-47.0); Hemoglobin 13.8 g/dL (11.5-15.3); Lymphocytes # 1.9 10^3/uL (0.8-4.8); Lymphocytes % 8.9 %; Mean Corpuscular HGB Conc 34.1 g/dL (30.0-36.0); Mean Corpuscular Hemoglobin 31.3 pg (28.0-34.0); Mean Corpuscular Volume 91.8 fl (81-99); Mean Platelet Volume 9.4 fL (7.4-10.4); Monocytes # 1.3 10^3/uL (0.2-0.9); Monocytes % 6.1 %; Neutrophils # 17.32 10^3/uL (1.8-7.7); Neutrophils % 82.9 %; Nucleated Red Blood Cells % 0 %; Platelet Count 374 10^3/cmm (130-400); Red Blood Count 4.41 10^6/uL (4.1-5.3); Red Cell Distribution Width 12.6 % (12.1-15.1); White Blood Count 20.9 10^3/uL (4.0-10.0)
--- NOTE | 2021-10-08 08:14 | CT_ITS ---
WS: [id number] CT ANGIOGRAM CEREBRAL AND CAROTID ARTERIES HISTORY: acute intracranial bleed TECHNIQUE: CT angiogram is performed of the carotid and cerebral arteries. During arterial injection imaging is obtained from the skull vertex to the aortic arch in 1.25 mm imaging. Coronal and sagittal reformats are submitted. Additional multi planar reformats of the carotid and cerebral arteries are submitted, MIP imaging also reviewed. NASCET criteria utilized. [facility] CT [facility] at least one of these dose optimization techniques: automated exposure control; mA and/or kV adjust ment per patient size (includes targeted exams where dose is matched to clinical indication); or iter ative reconstruction. CONTRAST: Omnipaque 350; 95 mL IV. DLP: 347.44 mGy.cm COMPARISON: 10/08/2021 and 01/01/[address] Carotid Angiogram: Right carotid: Common carotid artery: Arises normally from the innominate artery. No significant plaque or stenosis. Internal carotid artery: No significant stenosis. External carotid artery: Patent. Left carotid: Common carotid artery: Arises normally from the aorta. No significant plaque or stenosis. Internal carotid artery: No plaque or stenosis. External carotid artery: Patent. Right vertebral artery: Tiny amount calcification at the origin of the RIGHT vertebral artery. No renetta nosis or occlusion. Very mildly dominant. Left vertebral artery: Arises directly from the aortic arch. No stenosis. Subclavian arteries: No stenosis or significant abnormality. Upper thorax: Numerous cystic areas in the upper lung conley. These do not appear to be changes assoc iated with central lobular emphysema which is advanced. Thyroid gland: Normal. Osseous structures: Unremarkable. CEREBRAL ANGIOGRAM: Intracranial vertebral arteries: Normal with no significant atherosclerosis. Basilar artery: No significant stenosis or occlusion. No aneurysm. Intracranial Internal carotid arteries: Demonstrates no significant stenosis or plaque. Middle cerebral arteries: Normal. Anterior cerebral arteries and ACOM: Small caliber A1 segment incompletely visualized. The RIGHT A1 s egment is also small caliber but patent. Anterior communicating artery is patent. Posterior cerebral arteries and PCOM's: Patent. Small caliber bilateral posterior communicating arter ies. An area of the previously described calcifications along the RIGHT posterior parafalcine region with a focal area of intense enhancement. There are multiple enhancing, enlarged vessels and draining vein s. Suspect there is probably an associated aneurysm within the central nidus which is a typical findi ng. Patient has a known acute intraventricular hemorrhage which is probably associated with this AVM acute hemorrhage. Since the CT obtained at 7:38 AM no obvious progression and no inferior displacemen t. There is also subarachnoid component of the hemorrhage. Progression of cerebral edema. Mastoid air cells: Normal. Paranasal sinuses: Normal. Calvarium: Normal. CT/CT angio headneck* [id number] IMPRESSION: 1. No cervical carotid artery stenosis. 2. Tangle of vessel associated with the calcifications along the RIGHT posteri or parafalcine region. 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 There is marked intraventricular hemorrhage extend ing from from the fourth ventricle into the lateral ventricles. No midline shif t but there is effacement of sulci consistent with cerebral edema. Cannot ident po the discrete aneurysm associated with the AVM. 3. Cerebral edema has increased since the prior CT from early this morning. Notified Brett Membreno DO at 10/08/2021 9:00 AM.
[2021-10-08 08:47] LABS: Troponin(5th) Baseline 22 ng/L (0-10)
[2021-10-08] MEDS: iohexol 350 mg/mL 100 mL Btl IV (08:47)
[2021-10-08] MEDS: succinylcholine 20 mg/mL SDV 10mL 80 MG IVP (08:47)
[2021-10-08] MEDS: propofol 10 mg/mL SDV 20 mL 100 MG IVP (08:48)
[2021-10-08 08:51] LABS: Alanine Aminotransferase 14 U/L (0-33); Albumin Level 4.3 g/dL (3.5-5.2); Alkaline Phosphatase 94 IU/L (35-105); Anion Gap 20.9 (5-19); Aspartate Amino Transferase 20 U/L (0-32); Blood Urea Nitrogen 13 mg/dL (6-20); Calcium 9.6 mg/dL (8.5-10.5); Carbon Dioxide 24 mmol/L (22-29); Chloride 98 mmol/L (98-107); Globulin 2.8 g/dL (1.3-4.6); Glomerular Filtration Rate 57.1 mL/min (90-130); Glucose 352 mg/dL (65-115); Osmolality Calculated 300 mOsm/kg (285-295); Potassium 4.9 mmol/L (3.5-5.1); Sodium 138 mmol/L (136-145); Total Bilirubin 0.4 mg/dL (0.15-1.2); Total Protein 7.1 g/dL (6.6-8.7)
[2021-10-08] MEDS: nicardipine 20 MG/200 ML PREMIX 50 MG IV (08:52)
[2021-10-08 08:57] LABS: Acetaminophen < 5.0 ug/mL (10-30); Alcohol Level < 10 mg/dL (0-10); Salicylate < 0.3 mg/dL (3-10)
--- NOTE | 2021-10-08 09:05 | PC.NURSE ---
Patients family has been updated on the current status of the patient and the plan and transferring her out.
[2021-10-08 09:15] LABS: Blood Urine 2+ (Negative); Glucose Urine UA 4+ (Normal); Ketones Urine Negative (Negative); Nitrate Urine Negative (Negative); Protein Urine Trace (Negative); Specific Gravity, Urine 1.015 (1.005-1.030); Urine Appearance Hazy (CLEAR); Urine Color Straw (Yellow); pH Urine 6 (5-7)
[2021-10-08 09:16] LABS: Add Urine Culture? Yes; Add Urine Microscopic? YES; Bacteria Urine 4+ /hpf; Bilirubin Urine Neg (Negative); Leukocyte Esterase Urine Negative (Negative); RBC Urine RARE /hpf (0-2); Urobilinogen Urine Norm (Negative); WBC Urine 0-4 /hpf (0-5)
[2021-10-08 09:22] LABS: Amphetamines Screen Urine Negative (Negative); Barbiturates Screen Urine Negative (Negative); Benzodiazepines Screen Urine Negative (Negative); Cocaine Screen Urine Negative (Negative); Opiate Screen Urine Negative (Negative); PCP Screen Urine Negative (Negative); THC Screen Urine Positive (Negative)
[2021-10-08 10:01] LABS: INR 0.92 (0.8-1.2); Partial Thromboplastin Time 24.8 SECONDS (23.9-36.7)
[2021-10-08 11:24] LABS: Troponin 5 2HR 93.35 ng/L (0-10)
[2021-10-08 11:38] LABS: Troponin 5 2HR Delta 71.35 ABS# (0-10)
--- NOTE | 2021-10-08 12:08 | PC.NURSE ---
Called and spoke with ALEX Flores at [facility] in the Neuro ICU to give her the patient's critical lab results. Patients 2 hour troponin came back at 93.35 and her Delta was 71.35.
== END 2021-10-08 10:23 | disposition short-term general hospital (02) ==
PROVIDERS: Emergency Provider Family Medicine; PCP Family Medicine Adult Medicine
DX: R68.89 Other general symptoms and signs (principal); N18.2 Chronic kidney disease, stage 2 (mild); J44.9 Chronic obstructive pulmonary disease, unspecified; E78.5 Hyperlipidemia, unspecified; F17.210 Nicotine dependence, cigarettes, uncomplicated
CPT/HCPCS: 31500; 36415; 51702; 70450; 70496; 70498; 71045; 80053; 80306; 80307; 81001; 84484; 85025; 85610; 85730; 87077; 87086; 87186; 93005; 94002; 94799; 96365; 96367; 96375; 99291; 99292; J0330; J1953; J2250; J2704; J3010; J3490; J7799; Q9967

== ENCOUNTER → 2022-04-24 11:54 | Outpatient (BNVA) | payer MEDICAID, SELFPAY | PROVIDERS: PCP Family Medicine Adult Medicine; Visit Provider Nurse Practitioner Psychiatric/Mental Health | DX: Z79.899 Other long term (current) drug therapy (principal) | CPT/HCPCS: 80061; 83036 ==

== ENCOUNTER → 2023-07-23 11:26 | Outpatient (BNVA) | payer MEDICAID, SELFPAY | PROVIDERS: PCP Family Medicine Adult Medicine; Visit Provider Nurse Practitioner Psychiatric/Mental Health | DX: Z79.899 Other long term (current) drug therapy (principal); F31.64 Bipolar disorder, current episode mixed, severe, with psychotic features; F43.12 Post-traumatic stress disorder, chronic; F12.20 Cannabis dependence, uncomplicated | CPT/HCPCS: 80053; 80061; 83036 ==

== ENCOUNTER 2023-10-19 11:44 | Emergency (ER) | payer MEDICAID, SELFPAY ==
[2023-10-19 11:51] VITALS: BP 120/68; PULSE 110; RESP 16; TEMP 36.7; O2SAT 100; BMI 16.9
[2023-10-19 14:06] VITALS: BP 107/69; PULSE 62; O2SAT 93
--- NOTE | 2023-10-19 14:09 | W.ED.GENADLT ---
HPI - General Adult General: Chief complaint: General Medical Stated complaint: out of meds dr yue the 22 Time Seen by Provider: 10/19/23 13:33 History of Present Illness: 58-year-old female comes in today for being without her metformin. Patient took her last tablet this morning. Patient appears nontoxic. Patient appears in no pain. Patient does admit that she has an appointment to see the physician on the but was really concerned and does not like to be without her diabetes medication. Patient family member, her father, had bad diabetes and lost his foot so she is very adamant and concerned about being without her medication. Patient appears nontoxic. Patient appears in no pain. Patient denies any other complaints. Related Data Home Medications Medication Instructions Recorded Confirmed acetaminophen 325 mg capsule 650 mg PO Q6H PRN 11/29/21 07/23/23 Previous Rx's Medication Instructions Recorded montelukast 10 mg tablet 10 mg PO DAILY 30 days #30 tabs 11/14/22 (Singulair) blood sugar diagnostic (OneTouch #300 ea 01/17/23 Verio test strips) lancets #300 ea 05/20/23 budesonide-formoterol HFA 160 See Rx Instructions .Route 05/28/23 mcg-4.5 mcg/actuation aerosol .COMPLEX breathing #30.6 grams inhaler (Symbicort) metoprolol tartrate 25 mg tablet 12.5 mg (1/2 x 25 mg) PO BID #180 07/01/23 tabs albuterol sulfate 90 mcg/actuation 2 puff inhalation Q6H PRN 09/17/23 aerosol inhaler shortness of breath or wheezing 30 days #18 grams quetiapine 100 mg tablet (Seroquel) 100 mg PO BEDTIME #90 tabs 09/30/23 atorvastatin 40 mg tablet 40 mg PO DAILY #30 tabs 10/16/23 metformin 500 mg tablet 500 mg PO BID #30 tabs 10/19/23 metformin 500 mg tablet 500 mg PO BID #30 tabs 10/19/23 Allergies Allergy/AdvReac Type Severity Reaction Status Date / Time codeine AdvReac Mild ADR-Nausea Verified 10/19/23 11:51 Review of Systems General: Reports: 10 or more systems reviewed and unremarkable except in HPI and below PFSH ED PFSH: Medical History (Updated 08/18/24 @ 14:13 by ROMELIA De La Cruz) Severely underweight adult Diabetes type 2, controlled ADHD History of upper gastrointestinal bleeding Hypertension Nonsmoker for medical reasons Quit August 2021 Migraines CVA (cerebrovascular accident due to intracerebral hemorrhage) Chronic constipation CKD (chronic kidney disease) stage 2, GFR 60-89 ml/min Psychiatric care Generalized postprandial abdominal pain Chronic post-traumatic stress disorder Cystitis Dyslipidemia GERD (gastroesophageal reflux disease) COPD (chronic obstructive pulmonary disease) Cannabis dependence with current use Bipolar affective disorder, mixed, severe, with psychotic behavior Surgical History H/O esophagogastroduodenoscopy (03/21/20) Social History (Updated 12/27/21 @ 08:25 by Simona Landis LPN) Smoking and tobacco/nicotine status: former use of tobacco/nicotine Quit status (tobacco/nicotine): has quit using Year quit tobacco: 2021 Second hand smoke exposure: Yes Alcohol intake: never Substance/Drug Use: current Substance/Drug use frequency: daily Caregiver/support person: Yes Lives independently: No Household members: spouse Marital status: Current occupational status: disabled Physical Exam Const: COMMON NORMALS: alert HENMT: COMMON NORMALS: normocephalic HEAD & SCALP: normocephalic Neck/C-Spine: COMMON NORMALS: full ROM Resp: COMMON NORMALS: normal respiratory effort and clear to auscultation bilaterally AUSCULTATION: clear to auscultation bilaterally Cardio: COMMON NORMALS: regular rate RATE: regular rate GI: COMMON NORMALS: Soft to palpation PALPATION: Yes Soft to palpation Back/Pelvis: COMMON NORMALS: thoracic and lumbar spine normal to inspection Extremity: COMMON NORMALS: full ROM Neuro: SENSORIUM/ORIENTATION: Yes alert Skin: COMMON NORMALS: turgor normal GENERAL SKIN EXAM: turgor normal Course Vital Signs: Vital signs: Vital Signs Temperature 98.1 F 10/19/23 11:51 Pulse Rate 62 10/19/23 14:06 Respiratory Rate 16 10/19/23 11:51 Blood Pressure 107/69 10/19/23 14:06 Pulse Oximetry 93 10/19/23 14:06 Oxygen Delivery Me thod Room Air 10/19/23 14:06 [facility] - General Adult Medical Decision Making 58-year-old female comes in today for complaints of being without her medication, metformin. No significant abnormalities were noted on physical exam. Differential diagnosis includes but not limited to anxiety about health, out of medication, type 2 diabetes. Metformin prescription was sent to pharmacy number 30 tablets. Patient has to follow-up with primary care for further refills. 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 use Diabetes mellitus complication status: with unspecified complications Qualified Code(s): E11.8 - Type 2 diabetes mellitus with unspecified complications Condition: Stable Prescriptions: New metformin 500 mg tablet 500 mg PO BID Qty: 30 0RF Continued metformin 500 mg tablet 500 mg PO BID Qty: 30 0RF No Action acetaminophen 325 mg capsule 650 mg PO Q6H PRN montelukast [Singulair] 10 mg tablet 10 mg PO DAILY 30 Days Qty: 30 11RF (DME) OneTouch Verio test strips Strip See Rx Instructions .Route Qty: 300 6RF Rx Instructions: As directed (DME) [facility] See Rx Instructions .Route Qty: 300 5RF Rx Instructions: Check BS three times a day. Symbicort 160-4.5 mcg/actuation HFA aerosol inhaler See Rx Instructions .ROUTE .COMPLEX Qty: 30.6 5RF Dose Instruction: INHALE 2 PUFFS BY MOUTH TWICE DAILY Rx Instructions: INHALE 2 PUFFS BY MOUTH TWICE DAILY metoprolol tartrate 25 mg tablet 12.5 mg PO BID Qty: 180 0RF albuterol sulfate 90 mcg/actuation HFA aerosol inhaler 2 puff INHALATION Q6H PRN (Reason: shortness of breath or wheezing) 30 Days Qty: 18 5RF quetiapine [Seroquel] 100 mg tablet 100 mg PO BEDTIME Qty: 90 2RF Rx Instructions: Take one tablet at bedtime atorvastatin 40 mg tablet 40 mg PO DAILY Qty: 30 0RF Discharge Orders: Discharge ED (Routine); Ordered 10/19/23 Ordered By: Ahmet Veras Referrals: Delvin Casey MD [Primary Care Provider] - Discharge Diet: Usual diet Discharge Activity: Increase activity as tolerated Patient Instructions: Diabetes and Nutrition (ED) Activity Restrictions/Additional Instructions: Take medications as prescribed. Follow-up with primary care for refills. Return to ED for new concerns. Coding Level of Care Code ED Rod [employer] Tube Straightener for Yanely Whalen
[2023-10-19 14:35] VITALS: BP 108/76; PULSE 88; O2SAT 94
== END 2023-10-19 14:30 | disposition home or self-care (01) ==
PROVIDERS: Emergency Provider Nurse Practitioner Family; PCP Family Medicine Adult Medicine
DX: Z76.0 Encounter for issue of repeat prescription (principal); Z79.84 Long term (current) use of oral hypoglycemic drugs; Z87.891 Personal history of nicotine dependence; E11.22 Type 2 diabetes mellitus with diabetic chronic kidney disease; I12.9 Hypertensive chronic kidney disease with stage 1 through stage 4 chronic kidney disease, or unspecified chronic kidney disease; N18.2 Chronic kidney disease, stage 2 (mild); Z86.73 Personal history of transient ischemic attack (TIA), and cerebral infarction without residual deficits; E78.5 Hyperlipidemia, unspecified; J44.9 Chronic obstructive pulmonary disease, unspecified
CPT/HCPCS: 99283

== ENCOUNTER → 2024-06-17 09:30 | Outpatient (BNVA) | payer MEDICAID, SELFPAY ==
[2024-02-26 10:25] VITALS: BP 123/81; BMI 15.9
== END ==
PROVIDERS: PCP Family Medicine; Visit Provider Family Medicine
DX: E11.8 Type 2 diabetes mellitus with unspecified complications (principal)
CPT/HCPCS: 80053; 80061; 82043; 83036; 85025

== ENCOUNTER 2024-07-07 09:11 | Outpatient (CLI) | payer MEDICAID, SELFPAY ==
[2024-02-26 10:25] VITALS: BP 123/81; BMI 15.9
--- NOTE | 2024-07-07 09:45 | CT_ITS ---
WS: [id number] LDCT LUNG CANCER SCREENING HISTORY: screening TECHNIQUE: Axial imaging performed from the apices to 1 cm below the costophrenic angles. Coronal and sagittal reformats are submitted with axial MIP series. All CT scans at [facility] use at least one of these dose optimization techniques: automated exposure control; mA and/or kV adjustment per patient size (includes targeted exams where dose is matched to clinical indication); or iterative reconstruction. DLP: 42.31 mGy.cm DIvol: Mean CTDIvol: 0.60 (mGy) COMPARISON: 10/08/2021 Diagnostic quality: Satisfactory Lungs: Biapical pleural thickening and nodularity similar to the study of 10/08/2021. Advanced hyperexpansion with centrilobular emphysema. 4 mm irregular nodule RIGHT upper lobe, image 35 series 4 unchanged. Additional bilateral subpleural nodules in the upper lobes are stable. 4 mm pulm nodule posterior RIGHT lower lobe, image 153 of series 4. Heart: Normal size heart with no pericardial effusion.. Other findings: No pericardial or pleural effusions. Mild atherosclerosis thoracic aorta. No adenopathy identified. Small hiatal hernia. Adrenal glands are poorly visualized. CT/CT lung screening [id number] IMPRESSION: LUNG-RADS: 2-Benign Appearance or Behavior FOLLOW UP: 12 Month: Continue annual screening with LDCT OTHER FINDINGS (S MODIFIER): None.
== END 2024-07-07 09:12 | disposition home or self-care (01) ==
PROVIDERS: PCP Family Medicine; Visit Provider Family Medicine
DX: Z12.2 Encounter for screening for malignant neoplasm of respiratory organs (principal); Z87.891 Personal history of nicotine dependence; J92.9 Pleural plaque without asbestos; R91.8 Other nonspecific abnormal finding of lung field; J43.2 Centrilobular emphysema; I70.0 Atherosclerosis of aorta; K44.9 Diaphragmatic hernia without obstruction or gangrene
CPT/HCPCS: 71271

== ENCOUNTER → 2024-10-21 09:28 | Outpatient (BNVA) | payer MEDICAID, SELFPAY ==
[2024-06-18 15:01] VITALS: BP 122/66; BMI 14.9
== END ==
PROVIDERS: PCP Family Medicine; Visit Provider Family Medicine
DX: Z01.419 Encounter for gynecological examination (general) (routine) without abnormal findings (principal); E11.8 Type 2 diabetes mellitus with unspecified complications
CPT/HCPCS: 80053; 83036; 87624

== ENCOUNTER 2024-10-27 14:26 | Outpatient (CLI) | payer MEDICAID, SELFPAY ==
[2024-06-18 15:01] VITALS: BP 122/66; BMI 14.9
--- NOTE | 2024-10-27 14:40 | MM_ITS ---
WS: [id number] BILATERAL 3D TOMOSYNTHESIS DIGITAL SCREENING MAMMOGRAM WITH CAD CLINICAL INFORMATION: screening HISTORY: Screening mammogram. No current complaints. COMPARISON: 2018 TECHNIQUE: Bilateral CC and MLO. FINDINGS: The breast are composed heterogeneously dense tissue, which can limit the detection of small underlying mass lesions. No suspicious focal mass, asymmetry, calcifications, or architectural distortion. No evidence of malignancy. Vascular calcification. Incidental punctate and lucent centered calcifications. Dystrophic calcifications bilaterally. Architectural distortion inner RIGHT breast unchanged since 2016. MM/MM [facility] tomosynthesis [id number] IMPRESSION: DENSITY: The breasts are heterogeneously dense, which may obscure small masses. BI-RADS: 2 - Benign FOLLOW UP: 1 Year Follow-up Recommend return to annual screening mammography.
== END 2024-10-27 14:27 | disposition home or self-care (01) ==
LOC: RAD 14:27
PROVIDERS: PCP Family Medicine; Visit Provider Family Medicine
DX: Z12.31 Encounter for screening mammogram for malignant neoplasm of breast (principal); R92.333 Mammographic heterogeneous density, bilateral breasts; R92.323 Mammographic fibroglandular density, bilateral breasts; R92.1 Mammographic calcification found on diagnostic imaging of breast; N64.89 Other specified disorders of breast
CPT/HCPCS: 77063; 77067

== ENCOUNTER → 2025-01-21 13:36 | Outpatient (BNVA) | payer MEDICAID, SELFPAY ==
[2024-06-18 15:01] VITALS: BP 122/66; BMI 14.9
== END ==
PROVIDERS: PCP Family Medicine; Visit Provider Family Medicine
DX: E11.8 Type 2 diabetes mellitus with unspecified complications (principal)
CPT/HCPCS: 80053; 83036